=== PATIENT | male | born 1955 | race Caucasian/White ===

== ENCOUNTER 2020-08-27 15:24 | Observation (INO) | payer OTHER, MEDICARE, SELFPAY ==
[2020-08-27] VITALS (16 sets, daily range): BP systolic 116–135; BP diastolic 73–82; PULSE 74–108; RESP 13–24; TEMP 36.3–36.4; O2SAT 96–99; BMI 34.6
--- NOTE | ~2020-08-27 | XR_ITS ---
EXAMINATION: XR chest 2V DATE: 08/27/2020 16:10 INDICATION: Hypotension TECHNIQUE: PA and lateral views of the chest are obtained. COMPARISON: 04/08/2016 FINDINGS: The lungs are free of acute opacities. There is no pleural effusion or pneumothorax. The he art size is normal. Calcified bilateral hilar lymph nodes are consistent with old granulomatous disea se. There is moderate thoracic spondylosis. IMPRESSION: 1. No acute cardiopulmonary abnormality. Reviewed, dictated and finalized at location A.
[2020-08-27 15:49] LABS: Basophils Percent Auto 0.2 % (0.2-1.2); Eosinophils Absolute Auto 0.1 K/mm3 (0-0.3); Eosinophils Percent Auto 1.8 % (0-4.4); Hematocrit 45.2 % (42.0-52.0); Hemoglobin 14.6 g/dL (14.0-18.0); Immature Granulocyte Absolute 0.01 K/mm3 (0.00-0.031); Immature Granulocyte Percent A 0.2 % (0-0.5); Lymphocytes Absolute Auto 1.32 K/mm3 (0.9-3.2); Lymphocytes Percent Auto 22.2 % (18.3-44.2); Mean Corpuscular HGB Conc 32.3 g/dl (32-36); Mean Corpuscular Hemoglobin 29.2 pg (26-34); Mean Corpuscular Volume 90.4 fl (80-100); Mean Platelet Volume 10.9 fl (7.4-10.4); Monocytes Absolute Auto 0.5 K/mm3 (0.1-0.6); Monocytes Percent Auto 8.1 % (2.6-8.5); Neutrophils Percent Auto 67.5 % (45.5-73.1); Platelet Count Result 263 k/mm3 (150-375)
[2020-08-27 15:59] LABS: Prothrombin Time 12.9 Seconds (11.1-14.7)
[2020-08-27 16:00] LABS: Partial Thromboplastin Time 29.9 SECONDS (22.3-36.8)
[2020-08-27 16:14] LABS: Anion Gap 9 mmol/L (8-16); Blood Urea Nitrogen 21 mg/dL (9-20); Calcium 9.6 mg/dL (8.4-10.2); Carbon Dioxide 31 mmol/L (22-30); Chloride 104 mmol/L (98-107); Estimated CRCL calculation 108 ml/min; Estimated Glomerular Filt Rate > 60; Glucose 142 mg/dL (75-110); Sodium 144 mmol/L (137-145)
[2020-08-27 16:19] LABS: Troponin I < 0.012 ng/mL (0.000-0.034)
--- NOTE | 2020-08-27 16:44 | ED.CHESTPAIN ---
HPI - Chest Pain General Chief Complaint: Chest Pain Stated Complaint: chest pain, heart racing Time Seen by Provider: 08/27/20 16:40 Source: RN notes reviewed History of Present Illness HPI narrative: Patient presents to emergency department from home for chest pain. Patient states he was at his house today and had someone working on his house. He states the person was working on his house was taking longer than he felt he should have and was pedaling around. Since that time he developed some tightness in his midsternal chest. States that this episode lasted for approximately 20 minutes and resolved on its own. He states that this is the fourth episode he has had since the beginning of November. He states following this he was scheduled get a flu shot at his doctor's office and had gone to his doctor's office. They asked how he had been feeling he noted the chest pain and states that he had a blood pressure taken was 90s over 60s and a pulse ox was placed on his finger that noted a heart rate of 160s instructed to come to the emergency department for further evaluation patient denies any previous cardiac history. He denies any pain at this time. Related Data Allergies Allergy/AdvReac Type Severity Reaction Status Date / Time No Known Allergies Allergy Unknown Unverified 04/08/16 20:02 Review of Systems Review of Systems: Narrative: Gen.: Denies fevers or chills ENT: Denies congestion Respiratory: Denies shortness of breath or cough CV: See HPI GI: Denies abdominal pain nausea, emesis or diarrhea denies burning, urgency, frequency or hematuria Musculoskeletal: Denies back pain or muscle pain Neuro: Denies numbness, tingling, weakness or focal weakness Skin: Denies rash Except as documented, all other systems reviewed and negative [facility] Past Medical History Medical History (Updated 08/27/20 @ 17:12 by Guicho Boles DO) Parkinsons disease Social History Social History (Updated 08/27/20 @ 16:46 by Guicho Boles DO) Smoking status: Never smoker Exam Narrative: Exam Narrative: APPEARANCE: No acute distress, nontoxic, resting in bed EYES: EOMI HEENT: Normocephalic, atraumatic, OMM RESPIRATORY: No respiratory distress Clear to auscultation bilaterally with no rhonchi wheezing or rales. CARDIOVASCULAR: Regular rate and rhythm without murmurs rubs or gallops. ABDOMINAL: Soft, nontender, nondistended, no rebound or guarding MUSCULOSKELETAl: Moves all extremities. No clubbing, cyanosis or edema. NEURO: Awake and alert. Following commands, speech normal, no focal deficits SKIN:: Warm, dry. No rashes lesions or abrasions PSYCHIATRIC: Normal affect/mood, Course Course Emergency Course: Called discussed with Dr. fischer presentation work-up. This time agrees with consult and recommends admission to the hospital service Discussed with GLADYS Jeffries presentation work-up. Agrees with admission at this time to Dr. Mckeon Discussed with patient and family results of workup and diagnosis. Discussed need for admission. Patient and family understand and agree to current treatment plan Vital Signs Vital signs: Vital Signs Temperature 97.5 F L 08/27/20 15:30 Pulse Rate 106 H 08/27/20 15:30 Respiratory Rate 20 08/27/20 15:30 Blood Pressure 132/73 08/27/20 15:30 Pulse Oximetry 98 08/27/20 15:30 Temperature 97.5 F L 08/27/20 15:30 Pulse Rate 106 H 08/27/20 15:30 Respiratory Rate 20 08/27/20 15:30 Blood Pressure 132/73 08/27/20 15:30 Pulse Oximetry 98 08/27/20 15:30 MDM - Chest Pain Lab Data Result diagrams: 08/27/20 15:41 08/27/20 15:41 Labs: Lab Results 08/27/20 08/27/20 08/27/20 Range/Units 15:41 15:41 15:41 WBC 6.0 (4.5-10.0) K/mm3 RBC 5.00 (4.6-6.20) M/mm3 Hgb 14.6 (14.0-18.0) g/dL Hct 45.2 (42.0-52.0) % MCV 90.4 (80-100) fl MCH 29.2 (26-34) pg MCHC 32.3 (32-36) g/dl RDW 14.0 (11.5-14.5) % Plt C
[2020-08-27 17:00] LABS: D Dimer 0.48 ug/mL (<0.48)
[2020-08-27] MEDS: ASPIRIN 81 MG CHEWABLE TABLET 324 MG PO (17:47)
[2020-08-27] MEDS: SODIUM CHLORIDE 0.9% IV 1,000 ML 999 ML IV CONT (17:47)
[2020-08-27 18:42] LABS: Troponin I < 0.012 ng/mL (0.000-0.034)
--- NOTE | 2020-08-27 19:56 | ADMGEN ---
This patient, Stoney Kingston, was admitted to IMU Room 211-01 @ 1845. Patient/family oriented to hospital policies and general routines including ID bracelet, bed and alarms, visiting hours, pain management, procedures, bathroom and other care routines, personal items, smoking policy, room service/diet, and visiting hours. Information on how to activate the Rapid Response Team has been discussed. Patient/Family are encouraged to report perceived risks to care and to ask questions if they do not understand what they are told or what they should do.
--- NOTE | 2020-08-27 22:00 | PM.IMHP ---
H&P: HPI History of Present Illness Date/Time: 08/27/20 22:00 Chief complaint: Chest pressure. Narrative: Stoney Kingston is a 65-year-old male Parkinson's, hypertension, and diet-controlled diabetes who presented to the emergency department earlier today with complaints of chest pressure. Not long after eating lunch today he developed a slight pressure in the midsternal chest region, just left of center, that resolved within approximately 20 minutes. He was a bit fatigued thereafter but felt okay and he then went to his primary care provider's office for his flu shot. When asked how he had been feeling, he admitted to them that he had experienced chest pressure and he had felt fatigued since it resolved. His vital signs were obtained with a blood pressure of reportedly 90/60 with a heart rate in the 160s. 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 With further questioning he has had similar episodes, perhaps 4 or 5 since the beginning of this year, all which have resolved within minutes. Today's episode did last a bit longer. At the time my evaluation he feels in his usual state of health and has no complaints. He specifically denies history of cardiac dysrhythmia, palpitations, fluttering, and feelings of racing heart. He denies associated shortness of breath, nausea, vomiting, sweats, lightheadedness, syncope, and near syncope. He has not experience exertional chest pain or pleuritic pain. He denies history of sleep apnea in fact had a negative sleep study recently. He does not drink alcohol and drinks caffeine only in moderation. Of note he has seen Dr. Evans with [employer], and he apparently has had a negative stress test in the past. Review of Systems Review of Systems: Narrative: Twelve systems were reviewed with pertinent positives and negatives as per HPI. No fever, chills, or sweats. No recent cold or flu symptoms. He denies sick contacts. No orthopnea or PND. He has occasional lower extremity edema which is unchanged. No history of venous thromboembolism. He was diagnosed with type 2 diabetes mellitus and winter 2018 with a hemoglobin A1c of 6.5. He was put on metformin 500 mg once a day, and after losing nearly 40 lb he was able to come off of that medication reports a recent A1c I believe a 5.9. He does not check his glucose at home. No symptoms of neuropathy. He denies blurry vision, polydipsia, and polyuria. Except as documented, all other systems were reviewed and are negative. FOR[facility]LY [facility], [facility] Past Medical History Medical History (Updated 08/27/20 @ 23:19 by Nesha Harrison PA-C) Degenerative disc disease Diet-controlled diabetes mellitus Hypertension Lower extremity cellulitis Hospitalized for such in March 2012 and April 2016. Osteoarthritis Parkinsons disease Surgical History Surgical History (Updated 08/27/20 @ 23:17 by Nesha Harrison PA-C) History of left inguinal hernia repair History of tonsillectomy Family History Family History Mother Brain aneurysm Cancer Father Acute myocardial infarction Social History Social History (Updated 08/27/20 @ 23:18 by Nesha Harrison PA-C) Social History: Surrogate decision maker: Myriam Kingston, spouse. Code status: Full code. Smoking status: Never smoker Alcohol intake: former Drinks per week: 0 Alcohol use details: Was a heavy drinker but quit many years ago. Substance use: never Additional living arrangements comments: Resides with his in [place]. He has a biological daughter and a stepson. 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 Gender identity (if verbalized by the patient): Male Spiritual care concerns: No Meds Home Medications and Allergies Ho
[2020-08-27 22:03] LABS: Troponin I < 0.012 ng/mL (0.000-0.034)
[2020-08-28] VITALS: PULSE 71; PULSE 74; RESP 16; O2SAT 98
[2020-08-28 01:42] VITALS: PULSE 74
[2020-08-28 03:36] VITALS: BP 124/69; PULSE 72; RESP 18; TEMP 36.6; O2SAT 99
[2020-08-28 04:00] VITALS: PULSE 72; PULSE 74; RESP 18; O2SAT 99
[2020-08-28 05:19] LABS: Basophils Percent Auto 0.3 % (0.2-1.2); Eosinophils Absolute Auto 0.2 K/mm3 (0-0.3); Hematocrit 40.1 % (42.0-52.0); Hemoglobin 12.8 g/dL (14.0-18.0); Immature Granulocyte Absolute 0.01 K/mm3 (0.00-0.031); Immature Granulocyte Percent A 0.2 % (0-0.5); Lymphocytes Absolute Auto 1.69 K/mm3 (0.9-3.2); Lymphocytes Percent Auto 26.4 % (18.3-44.2); Mean Corpuscular HGB Conc 31.9 g/dl (32-36); Mean Corpuscular Hemoglobin 28.9 pg (26-34); Mean Corpuscular Volume 90.5 fl (80-100); Monocytes Absolute Auto 0.6 K/mm3 (0.1-0.6); Monocytes Percent Auto 9.7 % (2.6-8.5); Neutrophils Absolute Auto 3.9 K/mm3 (1.3-6.7); Neutrophils Percent Auto 60.4 % (45.5-73.1); Platelet Count Result 224 k/mm3 (150-375); Red Blood Count 4.43 M/mm3 (4.6-6.20); Red Cell Distribution Width 14.1 % (11.5-14.5); White Blood Count 6.4 K/mm3 (4.5-10.0)
[2020-08-28 05:37] LABS: Anion Gap 6 mmol/L (8-16); Blood Urea Nitrogen 17 mg/dL (9-20); Calcium 8.9 mg/dL (8.4-10.2); Carbon Dioxide 29 mmol/L (22-30); Chloride 108 mmol/L (98-107); Estimated CRCL calculation 139 ml/min; Estimated Glomerular Filt Rate > 60; Glucose 105 mg/dL (75-110); Potassium 3.7 mmol/L (3.4-5.0); Sodium 143 mmol/L (137-145)
[2020-08-28 06:00] VITALS: PULSE 73
[2020-08-28] MEDS: CARBIDOPA/LEVODOPA 25/100 MG TABLET 2 TABLET BY MOUTH (06:24)
--- NOTE | 2020-08-28 07:51 | PM.IMPN ---
Progress Note: A&P Assessment and Plan (1) Tachycardia: Code(s): R00.0 - Tachycardia, unspecified Status: Acute Assessment and Plan: Currently is better controlled A.FIB with RVR Continue to monitor Off of Diltiazem drip currently. (2) Chest pressure: Code(s): R07.89 - Other chest pain Status: Acute Assessment and Plan: No pain currently Likely secondary to demand ischemia Supportive care (3) Diet-controlled diabetes mellitus: Code(s): E11.9 - Type 2 diabetes mellitus without complications Status: Acute Assessment and Plan: Continue to monitor. Accuchecks ACHS ISS as needed (4) Hypertension: Code(s): I10 - Essential (primary) hypertension Status: Acute Assessment and Plan: Well controlled. Continue to monitor. (5) Chest pain: Code(s): R07.9 - Chest pain, unspecified Status: Acute Assessment and Plan: Chest pain free currently. Supportive care (6) Parkinsons disease: Code(s): G20 - Parkinson's disease Status: Acute Assessment and Plan: Continue home meds Subjective Date/time seen: 08/28/20 07:51 I feel ok Review of Systems Review of Systems: Narrative: Patient states that he is doing OK. Had tachycardia overnight. All systems reviewed & are unremarkable except as noted in HPI and below (HPI) Exam Narrative: Exam Narrative: Sitting in bed. Const: General: cooperative, no acute distress and ill appearing Nutritional Appearance: average body habitus Orientation/consciousness: patient oriented x3 HENMT: Head: normal to inspection and normocephalic Ears: hearing grossly normal bilaterally General nose exam: Normal external nose present Face and sinus: normal facial exam and face symmetric Mouth: Yes Normal oral and palatal mucosa present Teeth and gingiva: other (According to age.) Other: According age. Eyes: General: appearance normal, both eyes and all related structures Conjunctivae: conjunctivae normal Sclera: sclerae normal Cornea: corneas normal Pupils: Equal, round and reactive pupils present EOM: EOMs intact bilaterally Neck: Neck: normal visual inspection, no lymphadenopathy and no JVD Lymphatic: no lymphadenopathy noted Resp: Effort & Inspection: normal respiratory effort Auscultation: clear to auscultation bilaterally and diminished lung sounds Cardio: Jugular venous distension: no JVD Rate: regular rate Rhythm: regular rhythm GI: Inspection: distended GI Palp: Yes Soft to palpation and Yes No hepatosplenomegaly present Percussion: Yes tympanic to percussion Auscultation: normal bowel sounds Skin: General skin exam: normal color Lesions: no lesions Rashes: no rashes Wounds: no wounds Neuro: General: patient oriented x3 and CN's II-XI intact bilaterally Cranial nerves: Yes CN's II-XII intact bilaterally and Yes Equal, round and reactive pupils present Speech: normal speech Motor exam (neuro): 5/5 motor strength present throughout Sensory Exam: normal sensation Extrem: General: normal to inspection, full ROM and no pedal edema Objective Data Vital Signs Vital Signs: Vital Signs - 24 hr 08/27/20 15:30 08/27/20 16:37 08/27/20 16:39 Temperature 97.5 F L Pulse Rate 106 H 108 H 103 H Respiratory Rate 20 18 24 H Blood Pressure 132/73 122/82 Pulse Oximetry 98 97 96 08/27/20 16:45 08/27/20 17:01 08/27/20 17:16 Temperature Pulse Rate 105 H 99 99 Respiratory Rate 16 23 H 13 Blood Pressure 120/73 Pulse Oximetry 96 97 08/27/20 17:34 08/27/20 17:39 08/27/20 17:50 Temperature Pulse Rate 97 98 94 Respiratory Rate 22 H 19 23 H Blood Pressure 116/79 Pulse Oximetry 98 99 98 08/27/20 18:00 08/27/20 18:01 08/27/20 18:15 Temperature Pulse Rate 90 92 92 Respiratory Rate 23 H 22 H 17 Blood Pressure 132/78 Pulse Oximetry 97 97 98 08/27/20 18:47 08/27/20 20:00 08/27/20 22:00 Temperature Pulse Rate 99 82 81 Respiratory
[2020-08-28 08:00] VITALS: BP 140/81; PULSE 88; RESP 20; TEMP 36.1; O2SAT 98
--- NOTE | 2020-08-28 08:28 | PM.CNCAR ---
Assessment and Plan Assessment and plan (1) Tachycardia: Code(s): R00.0 - Tachycardia, unspecified Status: Acute Assessment and Plan: Noted on pulse oximeter at PCP office but not proven on EKG. EKG here shows sinus tachycardia at HR 106. He has been under physical and emotional stress lately and also admits to poor oral intake and skipping meals with busy work schedule. encourage oral intake Hold lisinopril for now given low BP on admission Consider Holter monitor in outpatient settings. Patient is stable for discharge from cardiac standpoint Patient is followed by Dr Evans. He has follow up appointment coming up soon. (2) Chest pressure: Code(s): R07.89 - Other chest pain Status: Acute Assessment and Plan: Atypical for angina. He ruled out for CO by EKG and negative trop. He had reactively recent stress test with his primary atmospheric sciences professor. No need for any further cardiac work up (3) Hypertension: Code(s): I10 - Essential (primary) hypertension Status: Acute Assessment and Plan: Per pt he has no history of HTN and on low dose lisinopril for DM. Will hold lisinopril on discharge. 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 With that he was feeling fatigued and tired. Yesterday after lunch he developed mild chest pressure that resolved spontaneously with no radiation and no associated dyspnea, palpitations, nausea or diaphoresis. Later on he went to his PCP office for flu shot. He was pain free at that time however he was noted to have BP of 90/60 and HR of 160 on pulse oximetry. Unfortunately no EKG was done at the PCP office. He was instructed to go to ER. In ER vitals were normal. EKG shows sinus tachycardia at 106 with incomplete RBBB He is followed by cardiologies (Dr Evans) mainly for preventive purposes with no known coronary disease, heart failure or arrhythmias. He had Echocardiogram and Nuc stress test with his atmospheric sciences professor both reportedly within normal limits. Never smoker. He had alcohol issues in the past but no active alcohol use now for years. Reason For Visit: Chest pressure. Review of Systems Review of Systems: All systems reviewed & are unremarkable except as noted in HPI and below Constitutional: Constitutional: Denies fatigue and Denies headache(s) Eyes: Eyes: Denies blurry vision ENT: Reports Normal hearing present and Denies headache(s) Cardiovascular: Cardiovascular: Denies chest pain, Denies diaphoresis, Denies pedal edema, Denies leg edema, Denies lightheadedness, Denies palpitations and Denies dyspnea Respiratory: Respiratory: Denies cough and Denies dyspnea Gastrointestinal: Gastrointestinal: Denies abdominal pain Musculoskeletal: Musculoskeletal: Denies back pain Neurologic: Reports Normal hearing present and Denies headache(s) Psychiatric: Psychiatric: Denies anxiety Endocrine: Endocrine: Denies fatigue and Denies palpitations [facility] Past Medical History Medical History (Updated 08/27/20 @ 23:19 by Nesha Harrison PA-C) Degenerative disc disease Diet-controlled diabetes mellitus Hypertension Lower extremity cellulitis Hospitalized for such in March 2012 and April 2016. Osteoarthritis Parkinsons disease Surgical History Surgical History (Updated 08/27/20 @ 23:17 by Nesha aHrrison PA-C) History of left inguinal hernia repair History of tonsillectomy Family History Family History Mother Brain aneur
[2020-08-28] MEDS: MULTIVITAMINS THERAPEUTIC TAB (*BKC) 1 TABLET PO (09:15)
[2020-08-28] MEDS: lisinopriL 5 MG TABLET PO (09:15)
[2020-08-28] MEDS: DICLOFENAC SOD 75 MG TABLET.EC PO (09:15)
--- NOTE | 2020-08-28 15:26 | ECG_ITS ---
Measurements Intervals [place] Rate: 106 P: 5 RI: 175 QRS: -34 QRSD: 101 T: 31 QT: 343 QTc: 456 Interpretive Statements SINUS TACHYCARDIA LEFT AXIS DEVIATION INCOMPLETE RIGHT BUNDLE BRANCH BLOCK ABNORMAL ECG Electronically Signed On 08-28-2020 7:28:07 CDT by Geronimo De La Rosa D.O.
--- NOTE | 2020-09-24 20:01 | PM.DS ---
DS: Admitting Diagnosis Admitting Diagnosis Admitting Diagnosis: 1-Chest pain 2-HTN 3-T2DM 4-Tachycardia DS: Discharge Diagnosis Discharge Diagnosis (1) Tachycardia: Code(s): R00.0 - Tachycardia, unspecified Status: Acute Assessment and Plan: Patient presented to his PCP office with complains of chest pressure. HR was increased at the time Patient was asked to come to ED Patient was ruled out for ACS with negative serial cardiac enzymes. (2) Chest pressure: Code(s): R07.89 - Other chest pain Status: Acute Assessment and Plan: Patient has a Cardilogist with whom he follows up in the outpatient office Cardiology was consulted but in view of this it was decided that patient sees his usual Funeral [employer] Dr. 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 (3) Diet-controlled diabetes mellitus: Code(s): E11.9 - Type 2 diabetes mellitus without complications Status: Acute Assessment and Plan: Diet controlled Quarterly A1C in the outpatient setting Follow up with PCP Carb consistent diet. (4) Hypertension: Code(s): I10 - Essential (primary) hypertension Status: Acute Assessment and Plan: Well controlled Continue home meds (5) Parkinsons disease: Code(s): G20 - Parkinson's disease Status: Acute Assessment and Plan: Well controlled Continue home meds DS: Summary Time Spent with Patient Time attestation: Total time spent providing and/or coordinating discharge services: Exam Narrative: Exam Narrative: Sitting on chair. Well appearing. Const: General: cooperative, comfortable, alert and awake Nutritional Appearance: overweight Orientation/consciousness: patient oriented x3 Limitations: no limitations HENMT: Head: normal to inspection and normocephalic Ears: hearing grossly normal bilaterally General nose exam: Normal external nose present Eyes: General: appearance normal, both eyes and all related structures Pupils: Equal, round and reactive pupils present EOM: EOMs intact bilaterally Neck: Neck: full ROM, no lymphadenopathy and no JVD Resp: Effort & Inspection: normal respiratory effort Auscultation: clear to auscultation bilaterally Cardio: Jugular venous distension: no JVD Rate: regular rate Rhythm: regular rhythm GI: Inspection: normal to inspection and obesity GI Palp: Yes Soft to palpation and Yes No hepatosplenomegaly present Skin: General skin exam: normal color and no rashes or lesions noted Neuro: General: patient oriented x3 and CN's II-XI intact bilaterally Cranial nerves: Yes CN's II-XII intact bilaterally and Yes Equal, round and reactive pupils present Cognition (Neuro): normal cognition Speech: normal speech Gait exam (Neuro): Normal gait present Motor exam (neuro): 5/5 motor strength present throughout Sensory Exam: normal sensation Extrem: General: normal to inspection, full ROM and pedal edema Discharge Plan Discharge Attending physician on discharge: Rod Pascual V. Consulting providers: Vinicio Lynn ; Cassy Cox ; Geronimo De La Rosa ; Nesha Harrison ; Raghav Zavala Discharging Clinician: Rod Pascual V. Patient Disposition: Home, Self-Care Activity: as tolerated Diet: heart healthy, low sodium, low cholesterol, low fat and high fiber Patient Instructions: Antibiotic Form, Chest Pain (DC), Type 2 Diabetes Management for Adults (DC) Stand Alone Forms: General Discharge Information Follow-up/Referrals: Deacon,DO Tyrone [Primary Care Provider] - 1 Week Discharge Medications: Continued diclofenac sodium 75 mg tablet,delayed release (DR/EC) 75 mg PO DAILY RF: 0 lisinopril 5 mg tablet 5 mg PO DAILY RF: 0 carbidopa-levodopa 25-100 mg tablet See Rx Instructions .ROUTE .COMPLEX RF: 0 multivitamin Tablet 1 tablet PO DAILY RF:
== END 2020-08-28 10:30 | disposition home or self-care (01) ==
LOC: ANHED 17:14 → ANHIMU 23:20
PROVIDERS: Emergency Medicine; Physician Assistant; Admitting Provider Family Medicine; Emergency Provider Emergency Medicine; PCP Student in an Organized Health Care Education/Training Program; Visit Provider Internal Medicine
DX: R07.89 Other chest pain (principal); G20 Parkinson's disease; E11.9 Type 2 diabetes mellitus without complications; I10 Essential (primary) hypertension; R00.0 Tachycardia, unspecified; R94.31 Abnormal electrocardiogram [ECG] [EKG]
CPT/HCPCS: 36415; 71046; 80048; 83735; 84443; 84484; 85025; 85380; 85610; 85730; 93005; 96360; 99285; A9270; G0378; J7030

== ENCOUNTER 2020-10-23 06:46 | Outpatient (NON) | payer OTHER, MEDICARE, SELFPAY ==
[2020-10-24 00:44] LABS: SARS-CoV-2 RNA PCR Negative
== END 2020-10-23 06:47 ==
PROVIDERS: PCP Student in an Organized Health Care Education/Training Program; Visit Provider Student in an Organized Health Care Education/Training Program
DX: R68.89 Other general symptoms and signs (principal); Z20.828 Contact with and (suspected) exposure to other viral communicable diseases
CPT/HCPCS: 87635; C9803; U0003

== ENCOUNTER 2020-10-23 15:01 | Observation (INO) | payer OTHER, MEDICARE, SELFPAY ==
[2020-10-23] VITALS (23 sets, daily range): BP systolic 108–148; BP diastolic 51–87; PULSE 69–155; RESP 14–23; TEMP 36.4–37.1; O2SAT 97–100; BMI 34.8
--- NOTE | ~2020-10-23 | XR_ITS ---
EXAMINATION: XR chest 1V portable INDICATION: Chest pain, tachycardia TECHNIQUE: Portable AP chest at 1535 hours COMPARISON: 08/27/2020 FINDINGS: The lungs are free of acute opacities. There is no pleural effusion or pneumothorax. The he art size is normal. Calcified bilateral hilar lymph nodes are consistent with old granulomatous disea se. There is moderate osteoarthritis of the shoulders. IMPRESSION: 1. No acute cardiopulmonary abnormality. Reviewed, dictated and finalized at location [facility]
--- NOTE | 2020-10-23 15:22 | ECG_ITS ---
Measurements Intervals [place] Rate: 155 P: NM: 0 QRS: -23 QRSD: 102 T: 21 QT: 279 QTc: 448 Interpretive Statements SUPRAVENTRICULAR TACHYCARDIA INCOMPLETE RIGHT BUNDLE BRANCH BLOCK ABNORMAL ECG Electronically Signed On 10-23-2020 16:43:14 TAX ADJUSTER by Geronimo De La Rosa D.O.
[2020-10-23] MEDS: SODIUM CHLORIDE 0.9% IV 1,000 ML 999 ML IV CONT (15:31)
[2020-10-23] MEDS: ADENOSINE IV SOLN 6 MG/2 ML VIAL IV PUSH (15:31)
--- NOTE | 2020-10-23 15:32 | ECG_ITS ---
Measurements Intervals [place] Rate: 92 P: 2 CA: 189 QRS: -15 QRSD: 108 T: 16 QT: 348 QTc: 430 Interpretive Statements SINUS RHYTHM BASELINE ARTIFACT- I, II, AVR, AVF NORMAL ECG Electronically Signed On 10-23-2020 16:45:49 SCIENTIFIC LINGUIST by Geronimo De La Rosa D.O.
[2020-10-23 15:58] LABS: Basophils Percent Auto 0.3 % (0.2-1.2); Eosinophils Absolute Auto 0.2 K/mm3 (0-0.3); Eosinophils Percent Auto 2.4 % (0-4.4); Hematocrit 25.2 % (42.0-52.0); Hemoglobin 7.6 g/dL (14.0-18.0); Immature Granulocyte Absolute 0.01 K/mm3 (0.00-0.031); Immature Granulocyte Percent A 0.2 % (0-0.5); Lymphocytes Absolute Auto 1.42 K/mm3 (0.9-3.2); Lymphocytes Percent Auto 21.3 % (18.3-44.2); Mean Corpuscular HGB Conc 30.2 g/dl (32-36); Mean Corpuscular Hemoglobin 27.8 pg (26-34); Mean Corpuscular Volume 92.3 fl (80-100); Mean Platelet Volume 10.2 fl (7.4-10.4); Monocytes Absolute Auto 0.5 K/mm3 (0.1-0.6); Monocytes Percent Auto 7.8 % (2.6-8.5); Neutrophils Absolute Auto 4.5 K/mm3 (1.3-6.7); Platelet Count Result 358 k/mm3 (150-375); Red Blood Count 2.73 M/mm3 (4.6-6.20); Red Cell Distribution Width 14.2 % (11.5-14.5); White Blood Count 6.7 K/mm3 (4.5-10.0)
--- NOTE | 2020-10-23 16:05 | PC.NURSE ---
Pt denies palpitations or chest pain at present. Continue to monitor. Order received to keep fluids at [facility].
[2020-10-23 16:09] LABS: INR 1.1; Prothrombin Time 14.3 Seconds (11.1-14.7)
[2020-10-23 16:10] LABS: Anion Gap 4 mmol/L (8-16); Blood Urea Nitrogen 17 mg/dL (9-20); Calcium 8.7 mg/dL (8.4-10.2); Carbon Dioxide 29 mmol/L (22-30); Chloride 107 mmol/L (98-107); Estimated CRCL calculation 109 ml/min; Estimated Glomerular Filt Rate > 60; Glucose 131 mg/dL (75-110); Partial Thromboplastin Time 28.2 SECONDS (22.3-36.8); Potassium 3.9 mmol/L (3.4-5.0); Sodium 140 mmol/L (137-145)
[2020-10-23 16:21] LABS: Troponin I < 0.012 ng/mL (0.000-0.034)
--- NOTE | 2020-10-23 16:44 | PC.NURSE ---
Pt resting comfortably on stretcher. Denies needs at present. Remains SR via monitor.
[2020-10-23] MEDS: CARBIDOPA/LEVODOPA 25/100 MG TABLET 2 TABLET PO (17:00)
--- NOTE | 2020-10-23 17:11 | ED.ARRPALP ---
HPI - Arrhythmia/Palpitations General Chief Complaint: Arrhythmia/Palpitations Stated Complaint: palpitations Time Seen by Provider: 10/23/20 15:09 History of Present Illness HPI narrative: Patient is a 65-year-old male who presents ER with racing the heart. He was sitting at a restaurant when it began. Has some mild pressure in center of his chest. No radiation. [place] a little unsteady when standing up. Had similar symptoms a couple months ago that were sustained but did not get a formal diagnosis. He is recently had an echocardiogram that was unremarkable. He has no history of coronary disease or arrhythmia that she is aware of. No aggravating or alleviating factors that he is noted. Related Data Home Medications Medication Instructions Recorded Confirmed carbidopa-levodopa See Rx Instructions .ROUTE .COMPLEX 08/27/20 08/27/20 diclofenac sodium 75 mg PO DAILY 08/27/20 08/27/20 lisinopril 5 mg PO DAILY 08/27/20 08/27/20 multivitamin 1 tablet PO DAILY 08/27/20 08/27/20 Allergies Allergy/AdvReac Type Severity Reaction Status Date / Time No Known Allergies Allergy Unknown Verified 10/23/20 15:06 Review of Systems Review of Systems: All systems reviewed & are unremarkable except as noted in HPI and below Constitutional: Constitutional: Denies chills, Denies fever(s) and Denies weakness ENT: Denies nasal congestion and Denies sore throat Cardiovascular: Cardiovascular: Reports chest pain, Reports rapid heart rate and Denies radiating jaw, neck or arm pain Respiratory: Respiratory: Denies cough, Denies dyspnea and Denies wheezing Gastrointestinal: Gastrointestinal: Denies abdominal pain and Denies nausea PMFSH Past Medical History Medical History (Updated 10/23/20 @ 20:11 by Kimani Acuna MD) Degenerative disc disease Diet-controlled diabetes mellitus Hypertension Lower extremity cellulitis Hospitalized for such in March 2012 and April 2016. Osteoarthritis Parkinsons disease Surgical History Surgical History (Updated 08/27/20 @ 23:17 by Nesha Harrison PA-C) History of left inguinal hernia repair History of tonsillectomy Family History Family History Mother Brain aneurysm Cancer Father Acute myocardial infarction Social History Social History (Updated 08/27/20 @ 23:18 by Nesha Harrison PA-C) Social History: Surrogate decision maker: Myriam Kingston, spouse. Code status: Full code. Smoking status: Never smoker Alcohol intake: former Drinks per week: 0 Substance use: never Additional living arrangements comments: Resides with his in [place]. He has a biological daughter and a stepson. 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 Gender identity (if verbalized by the patient): Male Spiritual care concerns: No Exam Narrative: Exam Narrative: GENERAL: Well-appearing, well-nourished, and in no acute distress. HEAD: Normocephalic, atraumatic. ENT: Mucous membranes moist. CHEST: Clear to auscultation. No respiratory distress. HEART: Tachycardic and regular. Normal peripheral pulses. ABDOMEN: Soft, nontender, nondistended. Heme + stool on NANI, no gross blood. EXTREMITIES: Normal range of motion. 1+ edema. SKIN: Warm, dry, no rash. NEURO: Alert and oriented x3. PSYCH: Normal mood and affect. Course Course Emergency Course: Patient responded well to adenosine 6 mg. Went into a normal sinus rhythm. Patient found to be anemic with occult positive stool. Likely related to his NSAID intake. Admit to hospitalist service with cardiology and GI consulting. Patient received 2 units of blood and some Protonix. We will put him on a clear liquid diet should they decide to scope him. Patient will be started on oral metoprolol for rate control per cardiology recommendations. Lastly patient has let us know that he was Covid swab today due to fatigue which is likely related to his ane
[2020-10-23] MEDS: PANTOPRAZOLE SODIUM IV 40 MG VIAL IV PUSH (17:52)
--- NOTE | 2020-10-23 17:54 | PC.NURSE ---
stool guiac positive per Dr. Acuna
[2020-10-23] MEDS: METOPROLOL TARTRATE 25 MG TABLET PO ×2 (18:41→20:00)
--- NOTE | 2020-10-23 19:33 | PC.NURSE ---
Report to WINIFRED Thompson, to continue care. Preparing to admit patient.
[2020-10-23 19:40] LABS: Hematocrit 24.4 % (42.0-52.0); Hemoglobin 7.4 g/dL (14.0-18.0)
--- NOTE | 2020-10-23 20:22 | PM.IMHP ---
H&P: HPI History of Present Illness Date/Time: 10/23/20 20:22 Chief complaint: svt, gi bleeding, covid pui Narrative: Stoney Kingston is a 65 year old male with past medical history of Parkinson's, hypertension, hyperlipidemia, osteoarthritis who presents to the ED with complaints of fatigue. He has been feeling like he has been getting weaker and weaker over the last month. He endorses taking diclofenac used to take 3 pills a day now cut down to 1 pill daily. Denies any history of gastric ulcers or bleeding. 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 States he has never had a colonoscopy before. His mother had colon cancer at age 74 or 78. He denies hemorrhoids. He has never had issues with anemia before. For his heart he has felt he has had fast heart rates in the past which has slowed down on their own. Does not take any stimulants, cut down on caffeine. He has had an echocardiogram done 3 weeks ago. Sees a fire control officer. In the ED: EKG showed SVT rate 155, subsequent EKG after adenosine 6mg x1 showed normal sinus rhythm rate 92. Occult blood was positive. Hemoglobin 7.4. Patient was given 2 units of packed red blood cells and Protonix, clear liquid diet for GI consultation. Cardiology was consulted for the SVT and patient was started on metoprolol. COVID pending. Patient admitted SVT, GI bleed. Date of service 10/23/2020 Review of Systems Review of Systems: Narrative: Constitutional: No Fever, No Chills, No Night Sweats. Endorses generalized weakness. ENT/Mouth: No Hearing Changes, No Ear Pain, No Nasal Congestion, No Sinus Pain, No Hoarseness, No sore throat, No Rhinorrhea, No Swallowing Difficulty Eyes: No Eye Pain, No Redness, No Vision Changes Cardiovascular: No Chest Pain, No Dyspnea on Exertion, No Orthopnea, No Claudication, No Edema. Endorses palpitations which come on and off spontaneously. Respiratory: No Cough, No Sputum, No Wheezing, No Shortness of Breath Gastrointestinal: No Nausea, No Vomiting, No Diarrhea, No Constipation, No Abdominal Pain does have itching in epigastric region, No Heartburn, No Hematochezia, No Melena Genitourinary: No Dysuria, No Urinary Frequency, No Hematuria, No Urinary Incontinence, No Urgency Musculoskeletal: No Arthralgias, No Myalgias, No Joint Swelling, No Joint Stiffness, No Back Pain Skin: No Skin Lesions, No Pruritis, No Hair Changes Neuro: No Weakness, No Numbness, No Paresthesias, No Loss of Consciousness, No Syncope, No Dizziness, No Headache Psych: No Anxiety/Panic, No Depression, No Insomnia Heme: No Bruising, No Bleeding Lymph: No Adenopathy Endocrine: No Polyuria, No Polydipsia, No Temperature Intolerance [facility] Past Medical History Medical History Degenerative disc disease Diet-controlled diabetes mellitus Hypertension Lower extremity cellulitis Hospitalized for such in March 2012 and April 2016. Osteoarthritis Parkinsons disease Surgical History Surgical History History of left inguinal hernia repair History of tonsillectomy Family History Family History Mother Brain aneurysm Cancer Breast cancer Colon cancer Father Acute myocardial infarction Social History Social History Social History: Surrogate decision maker: Myriam Kingston, spouse. Code status: Full code. Smoking status: Never smoker Alcohol intake: former Drinks per week: 0 Substance use: never Additional living arrangements comments: Resides with his in [place]. He has a biological daughter and a stepson. 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 Gender identity (if verbalized by the patient): Male Spiritual care concerns: No Meds Home Medications and Al
--- NOTE | 2020-10-23 20:50 | PC.NURSE ---
This patient, Stoney Kingston, was admitted to [facility] Surg Room 328-01. Patient/family oriented to hospital policies and general routines including ID bracelet, bed and alarms, visiting hours, pain management, procedures, bathroom and other care routines, personal items, smoking policy, room service/diet, and visiting hours. Information on how to activate the Rapid Response Team has been discussed. Patient/Family are encouraged to report perceived risks to care and to ask questions if they do not understand what they are told or what they should do.
--- NOTE | 2020-10-23 20:50 | PC.NURSE ---
This patient, Stoney Kingston, was admitted to [facility] Surg Room 328-01. Patient/family oriented to hospital policies and general routines including ID bracelet, bed and alarms, visiting hours, pain management, procedures, bathroom and other care routines, personal items, smoking policy, room service/diet, and visiting hours. Information on how to activate the Rapid Response Team has been discussed. Patient/Family are encouraged to report perceived risks to care and to ask questions if they do not understand what they are told or what they should do.
[2020-10-24] VITALS (18 sets, daily range): BP systolic 106–134; BP diastolic 55–86; PULSE 65–76; RESP 16–20; TEMP 36.2–37.1; O2SAT 97–100
[2020-10-24] MEDS: SODIUM CHLORIDE 0.9% IV 250 ML 30 ML IV CONT (03:04)
--- NOTE | 2020-10-24 03:36 | PC.NURSE ---
Patient covid [place] thru 10/23/20. Patient gives RN giving his care verbal OK to check results. Result pending still at this time. Patient notified.
[2020-10-24 05:51] LABS: Hemoglobin A1C 4.7 % (<5.7)
[2020-10-24] MEDS: CARBIDOPA/LEVODOPA 25/100 MG TABLET 2 TABLET PO ×3 (06:00→17:28)
[2020-10-24 07:17] LABS: Hematocrit 26.4 % (42.0-52.0); Hemoglobin 8.2 g/dL (14.0-18.0)
[2020-10-24] MEDS: MULTIVITAMINS THERAPEUTIC TAB (*BKC) 1 TABLET PO (09:01)
[2020-10-24] MEDS: PANTOPRAZOLE SODIUM IV 40 MG VIAL IV PUSH ×2 (09:01→21:21)
[2020-10-24] MEDS: METOPROLOL TARTRATE 25 MG TABLET PO ×2 (09:41→21:17)
[2020-10-24 09:46] LABS: Anion Gap 5 mmol/L (8-16); Blood Urea Nitrogen 16 mg/dL (9-20); Calcium 8.7 mg/dL (8.4-10.2); Carbon Dioxide 27 mmol/L (22-30); Chloride 108 mmol/L (98-107); Estimated CRCL calculation 121 ml/min; Estimated Glomerular Filt Rate > 60; Glucose 91 mg/dL (75-110); Magnesium 2.1 mg/dL (1.6-2.3); Potassium 4.1 mmol/L (3.4-5.0); Sodium 140 mmol/L (137-145)
--- NOTE | 2020-10-24 10:07 | PM.CNCAR ---
Assessment and Plan Assessment and plan (1) SVT (supraventricular tachycardia): Code(s): I47.1 - Supraventricular tachycardia Status: Acute Assessment and Plan: Converted sinus rhythm, will start on metoprolol 25 b.i.d. and continue with that upon discharge, he is to follow up with his crew person for further evaluation, possibly ablation if he has significant recurrence (2) Occult GI bleeding: Code(s): R19.5 - Other fecal abnormalities Status: Acute (3) Person under investigation for COVID-19: Code(s): Z20.828 - Contact with and (suspected) exposure to other viral communicable diseases Status: Acute (4) Chest pressure: Code(s): R07.89 - Other chest pain Status: Acute Assessment and Plan: So far cardiac enzymes negative, EKG is unremarkable, he had a stress test with his primary crew person which was negative recently, he needs to have a close follow-up, to consider further investigation if he has recurrence possibly with cardiac catheterization, however now he is pain free and he is okay to be discharged home to follow-up with his primary crew person Dr. Evans (5) Hypertension: Code(s): I10 - Essential (primary) hypertension Status: Acute Additional Plan He seems to be stable from cardiac standpoint to be discharged to have a follow-up with Dr. Evans in 1 week. I told feel free to call my office for any other inquiry History of Present Illness History of Present Illness Consult date/time: 10/24/20 10:07 65-year-old gentleman with history of hypertension, was admitted to the hospital because of tachycardia and chest heaviness, noted to have SVT initially converted to sinus rhythm with 1 dose of adenosine, he was here back in August at that time he was in with atypical chest pain, prior to that he had a stress test at his primary crew person's office which was negative. His heaviness in the chest is minimal 2/10 nonexertional improved after he was given blood transfusion to his severe anemia. So far cardiac enzymes are negative and EKG is unremarkable, no more SVT. We start him on metoprolol, last time when he was here was supposed to follow-up with his primary crew person after admission but I am not sure if he did. He was noted to have profound anemia and he received blood transfusion now. Reason For Visit: svt, gi bleeding, covid pui Review of Systems Constitutional: Constitutional: Reports fatigue, Reports lethargy and Reports poor appetite Cardiovascular: Cardiovascular: Reports as per HPI [facility] Past Medical History Medical History Degenerative disc disease Diet-controlled diabetes mellitus Hypertension Lower extremity cellulitis Hospitalized for such in March 2012 and April 2016. Osteoarthritis Parkinsons disease Surgical History Surgical History History of left inguinal hernia repair History of tonsillectomy Family History Family History Mother Brain aneurysm Cancer Breast cancer Colon cancer Father Acute myocardial infarction Social History Social History Social History: Surrogate decision maker: Myriam Kingston, spouse. Code status: Full code. Smoking status: Never smoker Alcohol intake: former Drinks per week: 0 Substance use: never Additional living arrangements comments: Resides with his in [place]. He has a biological daughter and a stepson. 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 Gender identity (if verbalized by the patient): Male Spiritual care concerns: No Meds Home Medications and Allergies Home Medications Medication Instructions Recorded Confirmed Type carbidopa-levodopa See Rx Instructions .ROUTE .COMPLEX 08/27/20
[2020-10-24] MEDS: FUROSEMIDE INJ 40 MG/4 ML VIAL 20 MG IV PUSH (11:33)
[2020-10-24 11:59] LABS: Hematocrit 27.7 % (42.0-52.0); Hemoglobin 8.6 g/dL (14.0-18.0)
[2020-10-24 12:14] LABS: Cholesterol 192 mg/dL (0-200); HDL Direct 29 mg/dL; Triglycerides 94 mg/dL (<150)
[2020-10-24 12:25] LABS: LDL Cholesterol Direct 139 mg/dL
--- NOTE | 2020-10-24 13:55 | WPDGICN ---
Assessment and Plan Assessment and plan (1) Acute blood loss anemia: Code(s): D62 - Acute posthemorrhagic anemia Status: Acute Assessment and Plan: he came in with SVT in setting of drop of his hb, also noted dark stools using nsaid's he needs EGD but also colonoscopy (family history of colon cancer and he never had one), agreeable to get both scopes tomorrow. Will start bowel prep (2) Occult GI bleeding: Code(s): R19.5 - Other fecal abnormalities Status: Acute Assessment and Plan: on ppi now more recommendations after scopes tomorrow (3) SVT (supraventricular tachycardia): Code(s): I47.1 - Supraventricular tachycardia Status: Acute Assessment and Plan: treated with adenosine and evaluated by cardiology (4) Chest pressure: Code(s): R07.89 - Other chest pain Status: Acute (5) Diet-controlled diabetes mellitus: Code(s): E11.9 - Type 2 diabetes mellitus without complications Status: Acute GI Consult Note Consult date/time: 10/24/20 13:55 Reason for consult: dark stools, acute blood loss anemia, gib HPI: Stoney Kingston is a 65 year old male with history of Parkinson's, hypertension, hyperlipidemia, osteoarthritis using diclofenac daily for about 20 years. He came to EF after having palpitations and more fatigue than usual for last few weeks, also noted last 2 weeks more dark stools than usual but attributed to diet and probably stress. Several weeks ago also had episode of SVT for which he stayed in the hospital for observation, had negative stress test. He is not taking any ppi and never had any scopes. His mother had colon cancer at age 74 or 78. Hb yesterday was 7.6 (2 months ago 12.5), normal MCV, BUN and renal function normal. He had blood transfusion last night and now he is feeling much better. Also had + occult blood in stool. COVID-19 negative. Had SVT yesterday but treated in ER with adenosine and now at baseline, also seen by cardiology. Review of Systems Constitutional: Constitutional: Reports fatigue Eyes: Eyes: Reports no additional eye complaints ENT: Reports Normal hearing present Cardiovascular: Cardiovascular: Reports palpitations Respiratory: Respiratory: Denies cough Gastrointestinal: Gastrointestinal: Denies abdominal pain, Reports melena and Denies nausea Genitourinary: Genitourinary: Denies dysuria Musculoskeletal: Musculoskeletal: Reports arthralgias Integumentary/Breasts: Skin/Breast: Denies pruritus Neurologic: Denies headache(s) Psychiatric: Psychiatric: Denies confusion [facility] Past Medical History Medical History Degenerative disc disease Diet-controlled diabetes mellitus Hypertension Lower extremity cellulitis Hospitalized for such in March 2012 and April 2016. Osteoarthritis Parkinsons disease Surgical History Surgical History History of left inguinal hernia repair History of tonsillectomy Family History Family History Mother Brain aneurysm Cancer Breast cancer Colon cancer Father Acute myocardial infarction Social History Social History Social History: Surrogate decision maker: Myriam Kingston, spouse. Code status: Full code. Smoking status: Never smoker Alcohol intake: former Drinks per week: 0 Substance use: never Additional living arrangements comments: Resides with his in [place]. He has a biological daughter and a stepson. 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 Gender identity (if verbalized by the patient): Male Spiritual care concerns: No Meds Home Medications and Allergies Home Medications Medication Instructions Recorded Confirmed Type carbidopa-levodopa See Rx Instructio
--- NOTE | 2020-10-24 14:55 | PM.IMPN ---
Progress Note: A&P Assessment and Plan (1) SVT (supraventricular tachycardia): Code(s): I47.1 - Supraventricular tachycardia Status: Acute Assessment and Plan: -treated with adenosine 6 mg, now in normal sinus rhythm -continue telemetry -patient started on Lopressor 25 mg b.i.d., cardiology consulted -will treat underlying issue, likely causes anemia from GI bleed. 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 Parkinson's, hypertension, osteoarthritis and degenerative disc disease for which patient is taking NSAID for long time, and family history of colon cancer his mother had a colon cancer at age of 73, patient presented emergency department with a complaint palpitation he felt while he was sitting in the restaurant upon arrival emergency department EKG showed rate was 150 and patient was in SVT, patient was given 6 mg of adenosine the rate trended down, patient was seen by his Cardiology patient recently had a cardiac echo and recently had stress test which was negative, patient was seen by pharmaceutical engineer here and no further workup is recommended and patient is cleared by the pharmaceutical engineer to be discharged, however upon arrival his hemoglobin was 7.6 and stool was positive for Hemoccult patient was given 1 unit of pack RBC patient is seen by GI recommended endoscopy as well as colonoscopy and patient has agreed, which is scheduled for tomorrow, patient is negative for COVID-19 will take him off the isolation. (2) Occult GI bleeding: Code(s): R19.5 - Other fecal abnormalities Status: Acute Assessment and Plan: -clear liquid diet and will keep NPO at midnight for EGD tomorrow -hemoglobin appears to be stable 7.6 to 7.4 likely slow bleed, hemoglobin was 12.8 in August 2020 -patient to receive 2 units packed red blood cells -stopping NSAIDs diclofenac -starting Protonix b.i.d. IV -GI consulted for EGD for suspected upper GI bleed -if no bleed culprit is identified may need colonoscopy. Patient states he has never had a colonoscopy before. (3) Anemia: Code(s): D64.9 - Anemia, unspecified Status: Acute Assessment and Plan: -likely acute blood loss anemia secondary to GI loss from NSAIDs possible ulcer -Hemoglobin 7.4, receiving 2 units packed red blood cells, will recheck in a.m. (4) Person under investigation for COVID-19: Code(s): Z20.828 - Contact with and (suspected) exposure to other viral communicable diseases Status: Acute Assessment and Plan: COVID test pending, no COVID symptoms, preoperative testing Additional Plan #chronic conditions -Parkinson's: Continue carbidopa-levodopa, chronic stable disease with right hand resting tremor -hyperlipidemia: Continue rosuvastatin -hypertension: Holding lisinopril while anemic and starting metoprolol -osteoarthritis: Stopping diclofenac for concern for GI bleed, pain control with [place] and morphine -diet-controlled type 2 diabetes: He does not take any diabetes medications, checking hemoglobin A1c. He was told he needed lisinopril for his kidneys. 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
[2020-10-24] MEDS: BISACODYL 5 MG TABLET EC 20 MG PO (17:28)
[2020-10-24 18:10] LABS: Hematocrit 28.8 % (42.0-52.0)
[2020-10-24] MEDS: PEG (High)/E-LYTE SOLN 4,000 ML BTL 4000 ML PO (19:04)
[2020-10-24] MEDS: ROSUVASTATIN 5 MG TABLET PO (21:21)
[2020-10-25] VITALS (9 sets, daily range): BP systolic 78–127; BP diastolic 40–84; PULSE 65–75; RESP 18–25; TEMP 36.5–36.7; O2SAT 99–100
[2020-10-25 00:35] LABS: Hematocrit 29.9 % (42.0-52.0); Hemoglobin 9.3 g/dL (14.0-18.0)
[2020-10-25] MEDS: MAGNESIUM CITRATE 300 ML BTL PO (04:20)
[2020-10-25] MEDS: CARBIDOPA/LEVODOPA 25/100 MG TABLET 2 TABLET PO ×2 (06:23→14:12)
[2020-10-25 06:37] LABS: Hematocrit 29.2 % (42.0-52.0); Hemoglobin 9.1 g/dL (14.0-18.0); Mean Corpuscular HGB Conc 31.2 g/dl (32-36); Mean Corpuscular Hemoglobin 28.3 pg (26-34); Mean Corpuscular Volume 90.7 fl (80-100); Mean Platelet Volume 10.1 fl (7.4-10.4); Platelet Count Result 353 k/mm3 (150-375); Red Blood Count 3.22 M/mm3 (4.6-6.20); Red Cell Distribution Width 14.5 % (11.5-14.5); White Blood Count 6.2 K/mm3 (4.5-10.0)
[2020-10-25 06:50] LABS: Anion Gap 9 mmol/L (8-16); Blood Urea Nitrogen 15 mg/dL (9-20); Calcium 9.2 mg/dL (8.4-10.2); Carbon Dioxide 26 mmol/L (22-30); Chloride 104 mmol/L (98-107); Estimated CRCL calculation 107 ml/min; Estimated Glomerular Filt Rate > 60; Glucose 98 mg/dL (75-110); Magnesium 2.1 mg/dL (1.6-2.3); Potassium 3.7 mmol/L (3.4-5.0); Sodium 139 mmol/L (137-145)
[2020-10-25] MEDS: MULTIVITAMINS THERAPEUTIC TAB (*BKC) 1 TABLET PO (08:33)
[2020-10-25] MEDS: METOPROLOL TARTRATE 25 MG TABLET PO (08:33)
[2020-10-25] MEDS: PANTOPRAZOLE SODIUM IV 40 MG VIAL IV PUSH (08:35)
--- NOTE | 2020-10-25 11:19 | PC.NURSE ---
to gi lab per w/c
[2020-10-25] MEDS: LACTATED RINGERS 1,000 ML 150 ML IV CONT (11:24)
--- NOTE | 2020-10-25 11:52 | WPDANESEPPF ---
Anes - Initial Pre Proc Eval Procedure: Operation Date: 10/25/20 12:00 Proposed Procedures p Esophagogastroduodenoscopy & Colonoscopy - Phillip Davila MD Date/Time: 10/25/20 11:52 Surgeon: Aramis Mckeon MD Pre Op Diagnosis: svt, gi bleeding, covid pui Patient Data Age: 65 Gender: M Height: 6 ft 1 in Weight: 119.8 kg Last Vital Signs Temp 36.5 C 10/25/20 11:13 Pulse 71 10/25/20 11:13 Resp 18 10/25/20 11:13 BP 127/84 10/25/20 11:13 Pulse Ox 99 10/25/20 11:13 Allergies Allergy/AdvReac Type Severity Reaction Status Date / Time No Known Allergies Allergy Unknown Verified 10/23/20 21:27 Home Medications Medication Instructions Recorded Confirmed Type carbidopa-levodopa See Rx Instructions .ROUTE .COMPLEX 08/27/20 10/23/20 History diclofenac sodium 75 mg PO DAILY 08/27/20 10/23/20 History lisinopril 5 mg PO DAILY 08/27/20 10/23/20 History multivitamin 1 tablet PO DAILY 08/27/20 10/23/20 History rosuvastatin 5 mg PO HS 10/23/20 10/23/20 History Laboratory Tests 10/24/20 10/24/20 10/24/20 11:29 11:29 17:47 WBC RBC Hgb 8.6 g/dL L g/dL 9.0 g/dL L g/dL (14.0-18.0) (14.0-18.0) Hct 27.7 % L % 28.8 % L % (42.0-52.0) (42.0-52.0) MCV MCH MCHC RDW Plt Count MPV Sodium Potassium Chloride Carbon Dioxide Anion Gap BUN Creatinine Estim Creat Clear Calc Estimated GFR Glucose Calcium Magnesium Triglycerides 94 mg/dL mg/dL (<150) Cholesterol 192 mg/dL mg/dL (0-200) LDL Cholesterol Direct 139 mg/dL mg/dL HDL Direct 29 mg/dL mg/dL 10/25/20 10/25/20 10/25/20 00:13 06:16 06:16 WBC 6.2 K/mm3 K/mm3 (4.5-10.0) RBC 3.22 M/mm3 L M/mm3 (4.6-6.20) Hgb 9.3 g/dL L g/dL 9.1 g/dL L g/dL (14.0-18.0) (14.0-18.0) Hct 29.9 % L % 29.2 % L % (42.0-52.0) (42.0-52.0) MCV 90.7 fl fl (80-100) MCH 28.3 pg pg (26-34) MCHC 31.2 g/dl L g/dl (32-36) RDW 14.5 % % (11.5-14.5) Plt Count 353 k/mm3 k/mm3 (150-375) MPV 10.1 fl fl (7.4-10.4) Sodium 139 mmol/L mmol/L (137-145) Potassium 3.7 mmol/L mmol/L (3.4-5.0) Chloride 104 mmol/L mmol/L (98-107) Carbon Dioxide 26 mmol/L mmol/L (22-30) Anion Gap 9 mmol/L mmol/L (8-16) BUN 15 mg/dL mg/dL (9-20) Creatinine 0.80 mg/dL mg/dL (0.7-1.3) Estim Creat Clear Calc 107 ml/min ml/min Estimated GFR > 60 (59 - ) Glucose 98 mg/dL mg/dL (75-110) Calcium 9.2 mg/dL mg/dL (8.4-10.2) Magnesium 2.1 mg/dL mg/dL (1.6-2.3) Triglycerides Cholesterol LDL Cholesterol Direct HDL Direct Patient hx anesthesia problems: none Family hx anesthesia problems: none [facility] Past Medical History Medical History Acute blood loss anemia Degenerative disc disease Diet-controlled diabetes mellitus Hypertension Lower extremity cellulitis Hospitalized for such in March 2012 and April 2016. Osteoarthritis Parkinsons disease Surgical History Surgical History History of left inguinal hernia repair History of tonsillectomy Family History Family History Mother Brain aneurysm Cancer Breast cancer Colon cancer Father Acute myocardial infarction Social History Social History Social History: Surrogate decision maker: Myriam Kingston, spouse. Code status: Full co
--- NOTE | 2020-10-25 13:12 | SUR.OPER ---
EGD START 1250, END 1255 COLONOSCOPY START 1300, END 1312
--- NOTE | 2020-10-25 14:00 | PC.NURSE ---
returned to room from GI lab.
--- NOTE | 2020-10-25 14:30 | PM.PNCARD ---
Progress Note: A&P Assessment and Plan (1) SVT (supraventricular tachycardia): Code(s): I47.1 - Supraventricular tachycardia Status: Acute Assessment and Plan: Converted sinus rhythm, will start on metoprolol 25 b.i.d. and continue with that upon discharge, he is to follow up with his homogenizer operator for further evaluation, possibly ablation if he has significant recurrence (2) Occult GI bleeding: Code(s): R19.5 - Other fecal abnormalities Status: Acute (3) Person under investigation for COVID-19: Code(s): Z20.828 - Contact with and (suspected) exposure to other viral communicable diseases Status: Acute (4) Chest pressure: Code(s): R07.89 - Other chest pain Status: Acute Assessment and Plan: So far cardiac enzymes negative, EKG is unremarkable, he had a stress test with his primary homogenizer operator which was negative recently, he needs to have a close follow-up, to consider further investigation if he has recurrence possibly with cardiac catheterization, however now he is pain free and he is okay to be discharged home to follow-up with his primary homogenizer operator Dr. Evans (5) Hypertension: Code(s): I10 - Essential (primary) hypertension Status: Acute Additional Plan He seems to be stable from cardiac standpoint to be discharged to have a follow-up with Dr. Evans in 1 week. I told feel free to call my office for any other inquiry Subjective Date/time seen: 10/25/20 14:30 Was getting EGD today Objective Data Vital Signs Vital Signs: Vital Signs - 24 hr 10/24/20 16:00 10/24/20 20:35 10/24/20 21:17 Temperature Pulse Rate 69 70 66 Respiratory Rate Blood Pressure Pulse Oximetry 10/24/20 22:00 10/25/20 00:00 10/25/20 04:00 Temperature 36.5 C Pulse Rate 71 65 66 Respiratory Rate 20 Blood Pressure 114/67 Pulse Oximetry 97 10/25/20 05:00 10/25/20 08:00 10/25/20 08:33 Temperature 36.7 C Pulse Rate 71 70 75 Respiratory Rate 20 Blood Pressure 111/55 L Pulse Oximetry 100 10/25/20 11:13 10/25/20 13:18 10/25/20 13:28 Temperature 36.5 C Pulse Rate 71 65 66 Respiratory Rate 18 21 H 22 H Blood Pressure 127/84 78/40 L 95/56 L Pulse Oximetry 99 99 99 10/25/20 13:38 Temperature Pulse Rate 68 Respiratory Rate 25 H Blood Pressure 104/67 Pulse Oximetry 100 Intake/Output Intake/Output: Intake & Output 10/22/20 10/23/20 10/24/20 10/25/20 23:59 23:59 23:59 23:59 Intake Total 300 1800 1900 Balance 300 1800 1900 Meds/Results Medications: Active Medications Generic Name Dose Route Start Last Admin Trade Name Freq PRN Reason Stop Dose Admin Hydrocodone Bitart/Acetaminophen 1 tab 10/23/20 19:14 Hydrocodone/Acetaminophen (*Crx) 5-325 Mg Tablet PO Q4H PRN Pain Rated 4-6 Carbidopa/Levodopa 2 tablet 10/24/20 06:30 10/25/20 14:12 Carbidopa/Levodopa 25/100 Mg Tablet PO 2 tablet AC SWETA Administration Metoprolol Tartrate 25 mg 10/23/20 21:00 10/25/20 08:33 Metoprolol Tartrate 25 Mg Tablet PO 25 mg Q12HR SWETA Administration Morphine Sulfate 4 mg 10/23/20 19:14 Morphine Sulfate (*Crx) 4 Mg/Ml Inj IV PUSH Q2H PRN Pain Rated 7-10 Multivitamins Therapeutic 1 tablet 10/24/20 09:00 10/25/20 08:33 Multivitamins Therapeutic Tab (*Bkc) PO 1 tablet DAILY SWETA Administration Ondansetron HCl 4 mg 10/23/20 19:14 Ondansetron Inj 4 Mg/2 Ml Vial IV PUSH Q4H PRN Nausea Pantoprazole Sodium 40 mg 10/25/20 21:00 Pantoprazole 40 Mg Tablet PO Q12HR SWETA Rosuvastatin Calcium 5 mg 10/24/20 21:00 10/24/20 21:21 Rosuvastatin 5 Mg Tablet PO 5 mg HS SWETA Administration Radiology Results: ITS Impressions Chest X-Ray 10/23/20 15:41 IMPRESSION: 1. No acute cardiopulmonary abnormality. Labs Labs: Laboratory Results - last 24 hr 10/24/20 10/25/20 10/25/20 17:47 00:13 06:16 WBC 6.2 RBC 3.22 L Hgb 9
--- NOTE | 2020-10-25 14:34 | PM.DS ---
DS: Admitting Diagnosis Admitting Diagnosis Admitting Diagnosis: svt, gi bleeding, covid pui DS: Discharge Diagnosis Discharge Diagnosis (1) SVT (supraventricular tachycardia): Code(s): I47.1 - Supraventricular tachycardia Status: Acute Assessment and Plan: -treated with adenosine 6 mg, now in normal sinus rhythm -continue telemetry -patient started on Lopressor 25 mg b.i.d., cardiology consulted -will treat underlying issue, likely causes anemia from GI bleed. 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's, hypertension, osteoarthritis and degenerative disc disease for which patient is taking NSAID for long time, and family history of colon cancer his mother had a colon cancer at age of 73, patient presented emergency department with a complaint palpitation he felt while he was sitting in the restaurant upon arrival emergency department EKG showed rate was 150 and patient was in SVT, patient was given 6 mg of adenosine the rate trended down, patient was seen by his Cardiology patient recently had a cardiac echo and recently had stress test which was negative, patient was seen by payable representative here and no further workup is recommended and patient is cleared by the payable representative to be discharged, however upon arrival his hemoglobin was 7.6 and stool was positive for Hemoccult patient was given 1 unit of pack RBC patient is seen by GI recommended endoscopy as well as colonoscopy and patient has agreed, which is scheduled for tomorrow, patient is negative for COVID-19 will take him off the isolation. (2) Occult GI bleeding: Code(s): R19.5 - Other fecal abnormalities Status: Acute Assessment and Plan: -clear liquid diet and will keep NPO at midnight for EGD tomorrow -hemoglobin appears to be stable 7.6 to 7.4 likely slow bleed, hemoglobin was 12.8 in August 2020 -patient to receive 2 units packed red blood cells -stopping NSAIDs diclofenac -starting Protonix b.i.d. IV -GI consulted for EGD for suspected upper GI bleed -if no bleed culprit is identified may need colonoscopy. Patient states he has never had a colonoscopy before. (3) Anemia: Code(s): D64.9 - Anemia, unspecified Status: Acute Assessment and Plan: -likely acute blood loss anemia secondary to GI loss from NSAIDs possible ulcer -Hemoglobin 7.4, receiving 2 units packed red blood cells, will recheck in a.m. (4) Person under investigation for COVID-19: Code(s): Z20.828 - Contact with and (suspected) exposure to other viral communicable diseases Status: Acute Assessment and Plan: COVID test pending, no COVID symptoms, preoperative testing DS: Summary Hospital Course Reason for hospitalization: Chief complaint: svt, gi bleeding, covid pui Narrative: Stoney Kingston is a 65 year old male with past medical history of Parkinson's, hypertension, hyperlipidemia, osteoarthritis who presents to the ED with complaints of fatigue. He has been feeling like he has been getting weaker and weaker over the last month. He endorses taking diclofenac used to take 3 pills a day now cut down to 1 pill daily. Denies any history of gastric ulcers or bleeding. 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 States he has never had a colonoscopy before. His mother had colon cancer at age 74 or 78. He denies hemorrhoids. He has never had issues with anemia before. For his heart he has felt he has had fast heart rates in the past which has slowed down on their own. Does not take any stimulants, cut down on caffeine. He has had an echocardiogram done 3 weeks ago. Sees a payable representative. In the ED: EKG showed SVT rate 155, subsequent EKG after adenosine 6mg x1 showed normal sinus rhythm rate 92. Occult blood was positive. Hemoglobin 7.4. Patient was given 2 units of packed red blood cells and P
== END 2020-10-25 15:15 | disposition home or self-care (01) ==
LOC: ANHED 20:11 → ANH3MEDSUR 20:27
PROVIDERS: Internal Medicine Gastroenterology; Specialist; Student in an Organized Health Care Education/Training Program; Admitting Provider Family Medicine; Emergency Provider Emergency Medicine; PCP Student in an Organized Health Care Education/Training Program; Visit Provider Family Medicine
PROC: 0DJ08ZZ Inspection of Upper Intestinal Tract, Via Natural or Artificial Opening Endoscopic (ICD-10-PCS; CPT 43235; principal; 2020-10-25 12:00)
DX: I47.1 Supraventricular tachycardia (principal); K29.61 Other gastritis with bleeding; K57.31 Diverticulosis of large intestine without perforation or abscess with bleeding; K92.1 Melena; R07.89 Other chest pain; K64.8 Other hemorrhoids; Z20.828 Contact with and (suspected) exposure to other viral communicable diseases; D62 Acute posthemorrhagic anemia; D50.9 Iron deficiency anemia, unspecified; G20 Parkinson's disease; I10 Essential (primary) hypertension; E78.5 Hyperlipidemia, unspecified; M19.90 Unspecified osteoarthritis, unspecified site; E11.9 Type 2 diabetes mellitus without complications; Z80.0 Family history of malignant neoplasm of digestive organs
CPT/HCPCS: 45378; 43239; 36415; 36430; 71045; 80048; 80061; 83036; 83735; 84484; 85014; 85018; 85025; 85027; 85610; 85730; 86850; 86900; 86901; 86923; 87081; 87635; 88305; 93005; 96361; 96374; 96375; 96376; 99285; A9270; C9113; C9803; G0378; J0153; J1940; J2704; J7030; J7050; J7120; P9016; U0003

== ENCOUNTER 2020-11-18 10:56 | Outpatient (CLI) | payer OTHER, MEDICARE, SELFPAY ==
[2020-11-18 11:49] LABS: Basophils Percent Auto 0.2 % (0.2-1.2); Eosinophils Absolute Auto 0.2 K/mm3 (0-0.3); Eosinophils Percent Auto 1.8 % (0-4.4); Hematocrit 33.9 % (42.0-52.0); Hemoglobin 10.1 g/dL (14.0-18.0); Immature Granulocyte Absolute 0.04 K/mm3 (0.00-0.031); Immature Granulocyte Percent A 0.4 % (0-0.5); Lymphocytes Absolute Auto 1.36 K/mm3 (0.9-3.2); Lymphocytes Percent Auto 15.1 % (18.3-44.2); Mean Corpuscular HGB Conc 29.8 g/dl (32-36); Mean Corpuscular Hemoglobin 24.9 pg (26-34); Mean Corpuscular Volume 83.5 fl (80-100); Monocytes Absolute Auto 0.7 K/mm3 (0.1-0.6); Monocytes Percent Auto 7.2 % (2.6-8.5); Neutrophils Absolute Auto 6.8 K/mm3 (1.3-6.7); Neutrophils Percent Auto 75.3 % (45.5-73.1); Platelet Count Result 338 k/mm3 (150-375); Red Blood Count 4.06 M/mm3 (4.6-6.20); Red Cell Distribution Width 15.9 % (11.5-14.5)
[2020-11-18 12:12] LABS: Alanine Aminotransferase 8 U/L (4-50); Albumin Level 4.4 g/dL (3.5-5.1); Alkaline Phosphatase 71 U/L (38-126); Anion Gap 8 mmol/L (8-16); Aspartate Amino Transferase 23 U/L (17-59); Bilirubin,Total 0.3 mg/dL (0.2-1.3); Blood Urea Nitrogen 19 mg/dL (9-20); Calcium 9.6 mg/dL (8.4-10.2); Carbon Dioxide 29 mmol/L (22-30); Chloride 106 mmol/L (98-107); Creatine Kinase 67 U/L (55-170); Estimated Glomerular Filt Rate > 60; Glucose 110 mg/dL (75-110); Potassium 4.4 mmol/L (3.4-5.0); Sodium 143 mmol/L (137-145)
[2020-11-18 12:16] LABS: Creatinine Urine 194.9 mg/dL
[2020-11-18 12:46] LABS: Thyroid Stimulating Hormone Reflex 0.603 uIU/mL (0.465-4.68)
[2020-11-18 12:53] LABS: MALB Creatinine Ratio 266.1 mg/g (0-30); Microalbumin Urine Random 518.7 mg/L (0-16.7)
[2020-11-18 12:56] LABS: Hypochromasia 1+ (NORMAL); Large Platelets Present; Ovalocytes 1+ (NORMAL); Platelet Estimate Adequate (Adequate)
[2020-11-18 13:04] LABS: Hepatitis C Virus Antibody Negative (Negative)
== END 2020-11-18 10:57 | disposition home or self-care (01) ==
PROVIDERS: PCP Student in an Organized Health Care Education/Training Program; Visit Provider Student in an Organized Health Care Education/Training Program
DX: Z00.00 Encounter for general adult medical examination without abnormal findings (principal); K92.2 Gastrointestinal hemorrhage, unspecified; Z11.59 Encounter for screening for other viral diseases; Z13.220 Encounter for screening for lipoid disorders; E11.9 Type 2 diabetes mellitus without complications; Z13.29 Encounter for screening for other suspected endocrine disorder; Z13.228 Encounter for screening for other metabolic disorders; Z13.0 Encounter for screening for diseases of the blood and blood-forming organs and certain disorders involving the immune mechanism
CPT/HCPCS: 36415; 80053; 82043; 82550; 84153; 84443; 85025; 86803; G0103

== ENCOUNTER 2021-01-14 04:52 | Emergency (ER) | payer OTHER, MEDICARE, SELFPAY ==
[2021-01-14] VITALS (111 sets, daily range): BP systolic 98–146; BP diastolic 48–94; PULSE 80–176; RESP 13–30; TEMP 36.7; O2SAT 75–100
--- NOTE | ~2021-01-14 | CT_ITS ---
EXAMINATION: CTA chest PE abdomen pel DATE: 01/14/2021 06:32 INDICATION: Shortness of breath with exertion. TECHNIQUE: Computed tomography angiography (CTA) of the chest was performed with 100 mL Omnipaque-350 intravenous contrast timed to evaluate the pulmonary arteries. Coronal maximum intensity projection 3D-reconstructions were created by the technologist. Computed tomography (CT) of the abdomen and pelv is was performed with intravenous contrast. Automated exposure control and iterative reconstruction t echnique were employed. The dose-length product was 2712.59 mGy-cm. COMPARISON: None. FINDINGS: CTA chest: A calcified left lung nodule and calcified left hilar lymph nodes are consistent with old granulomatous disease. There is mild atelectasis bilaterally. No pleural effusion. The heart size is normal. No pericardial effusion. There are calcifications of aortic valve and coronary arteries. Ther e is no pulmonary embolus. There is bilateral gynecomastia. There is chronic height loss of multiple thoracic vertebral bodies. There is mild thoracic spondylosis. CT abdomen and pelvis: Calcifications in the liver and spleen are consistent with old granulomatous d isease. The gallbladder is normal in size. The pancreas and right adrenal gland are normal. There is a 1.7 cm mass of left adrenal gland measuring soft tissue attenuation. There are cysts in the kidneys measuring up to 12 mm on the left. There is a 2 mm stone in right kidney. There are 3 stones in left kidney measuring up to 6 mm. There are scattered diverticula in the colon. The appendix is normal. I n the left abdomen, there is a 10.1 x 9.3 cm mass involving the duodenal jejunal flexure with central necrosis that is contiguous with the bowel lumen. There is extensive fat stranding around this area. There are scattered foci of free intraperitoneal gas. The mass extends to the colon and other loops of small bowel. There is a mildly enlarged periportal lymph node. There is a small volume of ascites. There is moderate lumbar spondylosis. IMPRESSION: 1. No pulmonary embolus. Sensitivity is mildly decreased by motion artifact. 2. 10.1 cm mass involving the duodenal jejunal flexure with central necrosis that is contiguous with the bowel lumen. This finding is suspicious for gastrointestinal stromal tumor or adenocarcinoma. 3. Scattered foci of free intraperitoneal gas, likely secondary to perforation at the duodenal jejuna l mass. I discussed this result with Dr. Elizabeth. 4. Mildly enlarged periportal lymph node. 5. Small volume of ascites. Reviewed, dictated and finalized at location A. E SHEETFED PRESS OPERATOR IMPRESSION: 1. No pulmonary embolus. Sensitivity is mildly decreased by motion artifact. 2. 10.1 cm mass involving the duodenal jejunal flexure with central necrosis th at is contiguous with the bowel lumen. This finding is suspicious for gastroint estinal stromal tumor or adenocarcinoma. 3. Scattered foci of free intraperitoneal gas, likely secondary to perforation at the duodenal jejunal mass. I discussed this result with Dr. Elizabeth. 4. Mildly enlarged periportal lymph node. 5. Small volume of ascites.
--- NOTE | ~2021-01-14 | XR_ITS ---
EXAMINATION: XR chest 1V portable DATE: 01/14/2021 06:05 INDICATION: Shortness of breath. TECHNIQUE: A single frontal view of the chest was obtained. COMPARISON: Chest single view 10/23/2020, chest CT 01/14/2021 FINDINGS: There is mild atelectasis in the lower lung zones. A calcified left lung nodule and calcifi ed left hilar lymph nodes are consistent with old granulomatous disease. No pleural effusion or pneum othorax. The heart size is normal. IMPRESSION: 1. Mild atelectasis in the lower lung zones. Reviewed, dictated and finalized at location A. SION THERAPY NURSE
--- NOTE | 2021-01-14 05:08 | ECG_ITS ---
Measurements Intervals Norris Rate: 93 P: 66 SC: 155 QRS: -11 QRSD: 100 T: 30 QT: 351 QTc: 438 Interpretive Statements SINUS RHYTHM ATRIAL PREMATURE COMPLEX BASELINE ARTIFACT- I, II, III, AVR, AVL, AVF BORDERLINE ECG Electronically Signed On 01-14-2021 7:01:53 DASHBOARD DEVELOPER by Geronimo De La Rosa D.O.
--- NOTE | 2021-01-14 05:10 | ED.GENADULT ---
HPI - General Adult General Chief complaint: Arrhythmia/Palpitations Stated complaint: Rapid HR Time Seen by Provider: 01/14/21 04:59 Source: patient Mode of arrival: EMS Limitations: no limitations History of Present Illness HPI narrative: This is a 65 year old male with history of anemia, PUD, SVT, hypertension and morbid obesity who presents for via EMS for evaluation of an elevated HR. He states he has not felt well since yesterday after noon around 3 pm. He reports mid abdominal cramping with sob with exertion. He has been monitoring his HR at home and he states he HR has been intermittently elevated. HE denies chest pain, nausea, vomiting or fever. He also denies melena, and his last bowel movement was 2 days ago. He is concerned that his hemoglobin may be low so he came to ER. He states the last time he felt like this he was found to be anemic due to an ulcer. His presidential helicopter crew chief is Dr. Evans Related Data Home Medications Medication Instructions Recorded Confirmed carbidopa-levodopa See Rx Instructions .ROUTE .COMPLEX 08/27/20 10/23/20 diclofenac sodium 75 mg PO DAILY 08/27/20 10/23/20 lisinopril 5 mg PO DAILY 08/27/20 10/23/20 multivitamin 1 tablet PO DAILY 08/27/20 10/23/20 rosuvastatin 5 mg PO HS 10/23/20 10/23/20 vitamins A,C,Y-[id number]-[id number] cap PO 01/14/21 01/14/21 [Vision Formula (I-H-A-Zn-jose antonio)] Allergies Allergy/AdvReac Type Severity Reaction Status Date / Time No Known Allergies Allergy Unknown Verified 01/14/21 05:49 Review of Systems Review of Systems: All systems reviewed & are unremarkable except as noted in HPI and below Constitutional: Constitutional: Denies chills, Reports fatigue and Denies fever(s) Cardiovascular: Cardiovascular: Denies chest pain Respiratory: Respiratory: Denies cough and Reports dyspnea Gastrointestinal: Gastrointestinal: Reports abdominal pain, Reports constipation, Denies diarrhea, Reports nausea and Denies vomiting PMFSH Past Medical History Medical History Acute blood loss anemia Degenerative disc disease Diet-controlled diabetes mellitus Hypertension Lower extremity cellulitis Hospitalized for such in March 2012 and April 2016. Osteoarthritis Parkinsons disease Surgical History Surgical History History of left inguinal hernia repair History of tonsillectomy Family History Family History Mother Brain aneurysm Cancer Breast cancer Colon cancer Father Acute myocardial infarction Social History Social History Social History: Surrogate decision maker: Myriam Kingston, spouse. Code status: Full code. Smoking status: Never smoker Alcohol intake: former Drinks per week: 0 Substance use: never Additional living arrangements comments: Resides with his in [place]. He has a biological daughter and a stepson. 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 Gender identity (if verbalized by the patient): Male Spiritual care concerns: No Exam Const: General: no acute distress and alert Nutritional Appearance: obese Orientation/consciousness: patient oriented x3 Eyes: EOM: EOMs intact bilaterally Resp: Effort & Inspection: normal respiratory effort and no retractions Auscultation: clear to auscultation bilaterally Cardio: Rate: regular rate Rhythm: regular rhythm Heart sounds: no murmurs GI: GI Palp: Yes Soft to palpation, Yes Tenderness to palpation present (GI) (epigastric) and No Guarding due to palpation present (GI) Auscultation: normal bowel sounds Skin: General skin exam: pallor Neuro: General: patient oriented x3 and moves all extremities Extrem: General: edema Psych: Mental Status: mental status grossly normal Affect: normal affect Course Reevaluation(s)
--- NOTE | 2021-01-14 05:28 | PC.NURSE ---
Patient's HR was 171 on monitor, patient denies any cp or sob. Patient instructed on vagal maneuver and was able to decrease his HR to 93. ERP and this nurse in room at time patient HR increased and vagal maneuver performed.
[2021-01-14 05:29] LABS: Basophils Percent Auto 0.1 % (0.2-1.2); Hematocrit 30.7 % (42.0-52.0); Hemoglobin 9.1 g/dL (14.0-18.0); Immature Granulocyte Absolute 0.07 K/mm3 (0.00-0.031); Immature Granulocyte Percent A 0.4 % (0-0.5); Lymphocytes Absolute Auto 0.98 K/mm3 (0.9-3.2); Lymphocytes Percent Auto 5.1 % (18.3-44.2); Mean Corpuscular HGB Conc 29.6 g/dl (32-36); Mean Corpuscular Hemoglobin 22.6 pg (26-34); Mean Corpuscular Volume 76.4 fl (80-100); Mean Platelet Volume 11.1 fl (7.4-10.4); Monocytes Absolute Auto 1.1 K/mm3 (0.1-0.6); Monocytes Percent Auto 5.9 % (2.6-8.5); Neutrophils Absolute Auto 17.1 K/mm3 (1.3-6.7); Neutrophils Percent Auto 88.5 % (45.5-73.1); Platelet Count Result 291 k/mm3 (150-375); Red Blood Count 4.02 M/mm3 (4.6-6.20); Red Cell Distribution Width 17.8 % (11.5-14.5); White Blood Count 19.3 K/mm3 (4.5-10.0)
[2021-01-14 05:41] LABS: INR 1.6; Prothrombin Time 19.7 Seconds (11.1-14.7)
[2021-01-14 05:42] LABS: Partial Thromboplastin Time 30.3 SECONDS (22.3-36.8)
[2021-01-14 05:43] LABS: Alanine Aminotransferase 11 U/L (4-50); Albumin Level 3.6 g/dL (3.5-5.1); Alkaline Phosphatase 57 U/L (38-126); Anion Gap 5 mmol/L (8-16); Aspartate Amino Transferase 15 U/L (17-59); Bilirubin,Total 0.6 mg/dL (0.2-1.3); Blood Urea Nitrogen 23 mg/dL (9-20); Calcium 8.9 mg/dL (8.4-10.2); Carbon Dioxide 27 mmol/L (22-30); Chloride 107 mmol/L (98-107); Estimated CRCL calculation 115 ml/min; Estimated Glomerular Filt Rate > 60; Glucose 155 mg/dL (75-110); Lipase 28 U/L (23-300); Magnesium 1.6 mg/dL (1.6-2.3); Potassium 3.8 mmol/L (3.4-5.0); Sodium 139 mmol/L (137-145)
[2021-01-14 05:44] LABS: D Dimer 3.88 ug/mL (<0.48)
[2021-01-14] MEDS: METOPROLOL TARTRATE INJ 5 MG/5 ML VIAL IV PUSH ×2 (05:51→06:31)
[2021-01-14 05:53] LABS: Hypochromasia 1+ (NORMAL); Ovalocytes 1+ (NORMAL); Platelet Estimate Adequate (Adequate)
[2021-01-14 05:55] LABS: Troponin I < 0.012 ng/mL (0.000-0.034)
[2021-01-14 05:57] LABS: Add Urine Microscopic? YES; Appearance Urine Clear (Clear); Bilirubin Urine Negative (Negative); Blood Urine Negative (Negative); Color Urine Yellow (Yellow); Glucose Urine UA Negative (Negative); Ketones Urine Negative (Negative); Leukocyte Esterase Ur Negative LEU/UL (Negative); Mucus Urine Few /lpf; Nitrate Urine Negative (Negative); Protein Urine 1+ mg/dL (Negative); Specific Grav Ur 1.023 (1.001-1.035); Squamous Epithelial Cell Urine Rare /hpf (Few); Urobilinogen Urine Negative mg/dL (<2.0)
[2021-01-14] MEDS: SODIUM CHLORIDE 0.9% IV 500 ML 999 ML IV CONT (06:01)
[2021-01-14] MEDS: METOPROLOL TARTRATE 50 MG TAB 25 MG PO (06:04)
--- NOTE | 2021-01-14 06:14 | PC.NURSE ---
Patient taken to CT.
[2021-01-14] MEDS: LACTATED RINGERS 1,000 ML 999 ML IV CONT (07:01)
--- NOTE | 2021-01-14 08:07 | PM.CNCAR ---
Assessment and Plan Assessment and plan (1) SVT (supraventricular tachycardia): Code(s): I47.1 - Supraventricular tachycardia Status: Acute Assessment and Plan: Patient with history of SVT who presents again with palpitations. 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 His TSH is 0.6 (low normal). He has leukocytosis but no fever. He had CT of chest with no PE but incidental mass. For now will continue home dose of Metoprolol and add Cardizem 30 mg Q6. No need to start drip unless he tachycardia sustain. Will also replace K and Mg. He had recent echo and stress test with his primary client support analyst. Will need to obtain records. Per patient report both were normal (2) Mass of duodenum: Code(s): K31.89 - Other diseases of stomach and duodenum Status: Acute Assessment and Plan: Surgery consult called per ER (3) Hypertension: Code(s): I10 - Essential (primary) hypertension Status: Acute Assessment and Plan: Will hold Lisinopril while starting pt on Cardizem to avoid hypotension. Continue Metoprolol History of Present Illness History of Present Illness Consult date/time: 01/14/21 08:07 65 y/o with h/o obesity, Parkinson's, HTN, DM (diet controlled), Paroxysmal SVT who presents with palpitations He is known to me from recent admissions in Aug 2020 and Oct 2020. Both with tachycardia and was found to have SVT, at one time converted to sinus after Adenosine. 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 He went home and checked his pulse with oximeter and it was 160 so he came to ER. IN ER he has been going in and out of SVT that appears like AVNRT. 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 Surgery consult was called for further evaluation of that mass. Labs notable for leukocytosis. Cr normal, K 3.8. mg 1.6 He is followed by client support analyst (Dr Evans) and is actually scheduled for ablation in 2 weeks. He denies chest pain or dyspnea. He admits top fatigue. He has lower ext edema and he contributes that to eating too much salt. He is not on diuretics. He had sleep study that he reports was negative for sleep apnea EKG shows: Sinus rhythm with PACs. Review of tele shows paroxysms of SVT with HR up to 160s-170s. Never smoker. He had alcohol issues in the past but no active alcohol use now for years. Reason For Visit: Duodenal jejunal mass with perforation/SVT Review of Systems Review of Systems: All systems reviewed & are unremarkable except as noted in HPI and below Constitutional: Constitutional: Denies fatigue and Denies headache(s) Eyes: Eyes: Denies blurry vision ENT: Reports Normal hearing present and Denies headache(s) Cardiovascular: Cardiovascular: Denies chest pain, Denies diaphoresis, Denies pedal edema, Denies leg edema, Denies lightheadedness, Denies palpitations and Denies dyspnea Respiratory: Respiratory: Denies cough and Denies dyspnea Gastrointestinal: Gastrointestinal: Denies abdominal pain Musculoskeletal: Musculoskeletal: Denies back pain Neurologic: Reports Normal hearing present and Denies headache(s) Psychiatric: Psychiatric: Denies anxiety Endocrine: Endocrine: Denies fatigue and Denies palpitations [facility] Past Medical History Medical History Acute blood loss anemia Degenerative disc disease Diet-controlled diabetes mellitus Hypertension Lower extremity cellulitis Hospitalized for such in March 2012 and April 2016. Osteoarthritis Parkinsons disease Surgical History Surgical History History of left inguinal hernia repair History of tonsillectomy Family History Family History Moth
--- NOTE | 2021-01-14 08:26 | PC.NURSE ---
0800-report to klaudia in icu 0805-floral design teacher present speaking with pt 0850-pt amb to bathroom with help
--- NOTE | 2021-01-14 08:30 | PC.NURSE ---
0830- informed that surgery dept prefers that pt be transferred to higher level of care. ed charge and warehouse shipping receiving clerk informed.
[2021-01-14] MEDS: MAGNESIUM SULF 2 GM/WATER 50ML 2 GM/50 ML BAG IVPB (08:45)
[2021-01-14] MEDS: POTASSIUM CHLORIDE 20 MEQ PACKET (FOR LIQUID) 40 MEQ PO (08:45)
--- NOTE | 2021-01-14 09:00 | PC.NURSE ---
Addendum entered by Phyllis Allen RN 01/14/21 09:05: md instructs rn to hold po dose of cardizem and continue iv drip Original Note: instructed by ed physician to continue diltiazem drip despite previous orders to d/c. pt continues to have hr as high as 180 while on drip. no distress or c/o. pt will be transferred to [place] [facility] today. pt aware
[2021-01-14] MEDS: SODIUM CHLORIDE 0.9% IV 1,000 ML 125 ML IV CONT (09:04)
--- NOTE | 2021-01-14 09:46 | PM.CNGS ---
Assessment and Plan Assessment and plan (1) Mass of duodenum: Code(s): K31.89 - Other diseases of stomach and duodenum Status: Acute Assessment and Plan: images reviewed, likely c small perforation, given location of mass will need extensive surgery and would likely require tertiary center for care, pt has been accepted for transfer to the [facility] service at [facility] (2) SVT (supraventricular tachycardia): Code(s): I47.1 - Supraventricular tachycardia Status: Acute Assessment and Plan: Diltiazem gtt per cardiology History of Present Illness Consult details Consult date: 01/14/21 Reason for consult: abdominal pain Requesting physician: Taryn Elizabeth MD Narrative: Pt is a 65 y/o M presenting to ED c/o mid abdominal cramping/pain since yesterday. Pt reports episode have been progressively worsening and he has really not been able to eat. Pt denies any N/V. Pt reports he has also been SOB and c/o intermittent palpitations. Review of Systems Constitutional: Constitutional: Reports anorexia, Denies body ache(s), Denies chills, Reports fatigue, Denies fever(s), Denies headache(s), Reports lethargy, Denies malaise, Reports poor appetite, Denies weight gain and Denies weight loss Eyes: Eyes: Reports no additional eye complaints ENT: Reports system reviewed and no additional complaints, except as documented Cardiovascular: Cardiovascular: Denies chest pain, Reports irregular heart rhythm, Reports palpitations, Reports dyspnea and Reports dyspnea on exertion Respiratory: Respiratory: Reports dyspnea and Reports dyspnea on exertion Gastrointestinal: Gastrointestinal: Reports abdominal pain, Denies belching, Reports bloating, Reports constipation, Reports GI cramping, Denies nausea and Denies vomiting Genitourinary: Genitourinary: Reports no additional male genitourinary complaints Musculoskeletal: Musculoskeletal: Reports no additional musculoskeletal complaints Integumentary/Breasts: Skin/Breast: Reports system reviewed and no additional complaints, except as docu Neurologic: Reports system reviewed and no additional complaints, except as documented Psychiatric: Psychiatric: Reports no additional psychiatric complaints Endocrine: Endocrine: Reports no additional endocrine complaints Hematologic/Lymphatic: Hematologic/Lymphatic: Reports no additional hematologic/lymphatic complaints Allergic/Immunologic: Allergic/Immunologic: Reports no additional allergic/immunologic complaints PMFSH Past Medical History Medical History Acute blood loss anemia Degenerative disc disease Diet-controlled diabetes mellitus Hypertension Lower extremity cellulitis Hospitalized for such in March 2012 and April 2016. Osteoarthritis Parkinsons disease Surgical History Surgical History History of left inguinal hernia repair History of tonsillectomy Family History Family History Mother Brain aneurysm Cancer Breast cancer Colon cancer Father Acute myocardial infarction Social History Social History Social History: Surrogate decision maker: Myriam Kingston, spouse. Code status: Full code. Smoking status: Never smoker Alcohol intake: former Drinks per week: 0 Substance use: never Additional living arrangements comments: Resides with his in [place]. He has a biological daughter and a stepson. 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 Gender identity (if verbalized by the patient): Male Spiritual care concerns: No Meds Home Medications and Allergies Home Medications Medication Instructions Recorded Confirmed Type carbidopa-levodopa See Rx Instructions .ROUTE .COMPLEX 08/27/20 10/23/20 History diclofenac sodium 75 mg PO DAILY 08/27/20
--- NOTE | 2021-01-14 10:14 | PC.NURSE ---
ns drip started at 903 going at 999 bolus instead of ordered 125 cc/hr (per ed physician request)
--- NOTE | 2021-01-14 10:28 | PC.NURSE ---
updated by phone spoke with intake at center. face sheet faxed. radiology notified for images to disc
[2021-01-14 10:46] LABS: Glucose Point of Care 148 (65-105)
--- NOTE | 2021-01-14 12:38 | PC.NURSE ---
[facility] declined transfer [facility] accepted ETA 14:30 Trip # [id number]
--- NOTE | 2021-01-14 18:02 | PC.NURSE ---
carol moore hunter updated that ems will arrive for transport in 10 mins. no changes in pt condition
--- NOTE | 2021-01-14 18:50 | PC.NURSE ---
at 1825 transport via [facility] to [facility]. chart and imaging given to ems. belongings sent. pt remains on cardizem drip via pump. stable at time of transfer to [facility]
== END 2021-01-14 18:25 | disposition short-term general hospital (02) ==
LOC: ANHED 07:34 → ANHICU 08:30
PROVIDERS: Family Medicine; General Practice; Emergency Provider Emergency Medicine; PCP Student in an Organized Health Care Education/Training Program
DX: I47.1 Supraventricular tachycardia (principal); K31.89 Other diseases of stomach and duodenum; K63.1 Perforation of intestine (nontraumatic); E66.01 Morbid (severe) obesity due to excess calories; Z68.39 Body mass index [BMI] 39.0-39.9, adult; I10 Essential (primary) hypertension; E11.9 Type 2 diabetes mellitus without complications; G20 Parkinson's disease; M19.90 Unspecified osteoarthritis, unspecified site; Z87.11 Personal history of peptic ulcer disease; R18.8 Other ascites; R91.8 Other nonspecific abnormal finding of lung field; I49.1 Atrial premature depolarization; R06.02 Shortness of breath
CPT/HCPCS: 36415; 71045; 71275; 74177; 80053; 81001; 82948; 83605; 83690; 83735; 84484; 85025; 85380; 85610; 85730; 93005; 96361; 96365; 96366; 96367; 96368; 96375; 99285; A9270; J2543; J3475; J7030; J7040; J7120; Q9967

== ENCOUNTER 2023-06-19 00:53 | Emergency (ER) | payer OTHER, MEDICARE, SELFPAY ==
[2023-06-19] VITALS (26 sets, daily range): BP systolic 115–141; BP diastolic 68–78; PULSE 81–100; RESP 13–33; TEMP 36.4; O2SAT 94–100
--- NOTE | 2023-06-19 01:15 | ECG_ITS ---
Measurements Intervals [place] Rate: 95 P: 83 AL: 195 QRS: -33 QRSD: 136 T: 4 QT: 376 QTc: 474 Interpretive Statements SINUS RHYTHM MARKED LEFT AXIS DEVIATION [QRS AXIS < -30] RIGHT BUNDLE BRANCH BLOCK [120+ ms QRS DURATION, UPRIGHT V1, 40+ ms S IN I/aVL/V4/V5/V6] ABNORMAL ECG COMPARED TO ECG 01/14/2021 05:01:23 RIGHT BUNDLE-BRANCH BLOCK NOW PRESENT Electronically Signed On 06-19-2023 13:20:15 CDT by Carlos Zarate M.D.
[2023-06-19 01:44] LABS: Basophils Percent Auto 0.1 % (0.2-1.2); Eosinophils Percent Auto 0.2 % (0-4.4); Hematocrit 42.8 % (42.0-52.0); Hemoglobin 13.8 g/dL (14.0-18.0); Immature Granulocyte Absolute 0.02 K/mm3 (0.00-0.031); Immature Granulocyte Percent A 0.2 % (0-0.5); Lymphocytes Absolute Auto 0.51 K/mm3 (0.9-3.2); Lymphocytes Percent Auto 6.1 % (18.3-44.2); Mean Corpuscular HGB Conc 32.2 g/dl (32-36); Mean Corpuscular Hemoglobin 31.1 pg (26-34); Mean Corpuscular Volume 96.4 fl (80-100); Mean Platelet Volume 10.5 fl (7.4-10.4); Monocytes Absolute Auto 0.6 K/mm3 (0.1-0.6); Monocytes Percent Auto 6.7 % (2.6-8.5); Neutrophils Absolute Auto 7.2 K/mm3 (1.3-6.7); Neutrophils Percent Auto 86.7 % (45.5-73.1); Platelet Count Result 170 k/mm3 (150-375); Red Blood Count 4.44 M/mm3 (4.6-6.20); Red Cell Distribution Width 13.7 % (11.5-14.5); White Blood Count 8.3 K/mm3 (4.5-10.0)
[2023-06-19 01:56] LABS: INR 1.2; Prothrombin Time 15.8 Seconds (11.1-14.7)
[2023-06-19 01:57] LABS: Partial Thromboplastin Time 29.2 SECONDS (22.3-36.8)
[2023-06-19 01:58] LABS: Alanine Aminotransferase 11 U/L (6-50); Albumin Level 4.3 g/dL (3.5-5.1); Alkaline Phosphatase 64 U/L (38-126); Anion Gap 9 mmol/L (8-16); Aspartate Amino Transferase 37 U/L (17-59); Blood Urea Nitrogen 18 mg/dL (9-20); Calcium 8.7 mg/dL (8.4-10.2); Carbon Dioxide 25 mmol/L (22-30); Chloride 103 mmol/L (98-107); Estimated CRCL calculation 95 ml/min; Estimated Glomerular Filt Rate > 60; Glucose 169 mg/dL (65-110); Sodium 137 mmol/L (137-145)
--- NOTE | 2023-06-19 02:09 | ED.GENADULT ---
HPI - General Adult General Chief complaint: Weakness Stated complaint: LOWER EXTREMITY WEAKNESS Time Seen by Provider: 06/19/23 01:40 Source: patient, EMS and RN notes reviewed Mode of arrival: EMS Limitations: no limitations History of Present Illness HPI narrative: This is a 67 year old male with history of hypertension and parkinsons who presents for evaluation of sweating. Patient states he occasionally has difficulty walking due to his parkinson's . He states tonight he was walking when he felt like his legs locked up and he could not walk. He reports he stood for 30-[address] until he felt like he could take another step. He reports that while he was standing for a prolonged period he started sweating. He denies having associated chest pain, shortness of breath, nausea, vomiting, dizziness, abdominal pain, leg pain, back pain, numbness or tingling. He thinks he may need to have his carbidopa increased. Related Data Home Medications Medication Instructions Recorded Confirmed carbidopa 25 mg-levodopa 100 mg See Rx Instructions .Route .COMPLEX 08/27/20 10/23/20 tablet diclofenac sodium 75 mg 75 mg PO DAILY 08/27/20 10/23/20 tablet,delayed release lisinopril 5 mg tablet 5 mg PO DAILY 08/27/20 10/23/20 multivitamin 1 tablet PO DAILY 08/27/20 10/23/20 rosuvastatin 5 mg tablet 5 mg PO HS 10/23/20 10/23/20 vitamins A,C,R-blkz-iqrrma 4,296 cap PO 01/14/21 01/14/21 mcg-226 mg-90 mg capsule Allergies Allergy/AdvReac Type Severity Reaction Status Date / Time No Known Allergies Allergy Unknown Verified 06/19/23 01:10 Review of Systems Constitutional: Constitutional: Denies weakness Cardiovascular: Cardiovascular: Denies syncope, Denies rapid heart rate, Denies irregular heart rhythm, Denies leg edema and Denies dyspnea Respiratory: Respiratory: Denies chest congestion, Denies hemoptysis, Denies excessive phlegm production and Denies dyspnea Gastrointestinal: Gastrointestinal: Denies abdominal pain, Denies hematochezia, Denies diarrhea and Denies vomiting Genitourinary: Genitourinary: Denies hematuria, Denies dysuria, Denies penile discharge and Denies testicular pain Musculoskeletal: Musculoskeletal: Denies joint swelling, Denies loss of height and Denies muscle weakness Neurologic: Denies syncope, Denies focal weakness and Denies weakness PMFSH Past Medical History Medical History Acute blood loss anemia Degenerative disc disease Diet-controlled diabetes mellitus Hypertension Lower extremity cellulitis Hospitalized for such in March 2012 and April 2016. Osteoarthritis Parkinsons disease Surgical History Surgical History History of left inguinal hernia repair History of tonsillectomy Family History Family History Mother Brain aneurysm Cancer Breast cancer Colon cancer Father Acute myocardial infarction Social History Social History Social History: Surrogate decision maker: Myriam Kingston, spouse. Code status: Full code. Smoking status: Never smoker Alcohol intake: former Drinks per week: 0 Alcohol use details: Was a heavy drinker but quit many years ago. Substance use: never Additional living arrangements comments: Resides with his in [place]. He has a biological daughter and a stepson. 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 Gender identity (if verbalized by the patient): Male Spiritual care concerns: No Exam Const: General: no acute distress and alert Nutritional Appearance: obese Orientation/consciousness: patient oriented x3 Limitations: no limitations HENMT: Head: normal to inspection Eyes: EOM: EOMs intact bilaterally Chest: Chest palpation & inspection: normal inspection of the chest Resp: Effo
--- NOTE | 2023-06-19 02:33 | PC.NURSE ---
Jen, ED press technician obtained orthostatic vital signs, however patient did not feel safe standing. She was able to obtain sitting and lying vital signs.
[2023-06-19 03:58] LABS: Appearance Urine Cloudy (Clear); Bacteria Urine None Seen /hpf; Bilirubin Urine Negative (Negative); Blood Urine Negative (Negative); Color Urine Yellow (Yellow); Glucose Urine UA Negative (Negative); Ketones Urine Trace mg/dL (Negative); Leukocyte Esterase Ur Negative LEU/UL (Negative); Need Manual Microscopic Reviewed; Nitrate Urine Negative (Negative); Protein Urine 1+ mg/dL (Negative); Specific Grav Ur 1.022 (1.001-1.035); Squamous Epithelial Cell Urine None seen /hpf (Few); WBC Urine 0-5 /hpf; pH Urine 5.5 (5.0-9.0)
[2023-06-19 03:59] LABS: Add Urine Microscopic? YES
--- NOTE | 2023-06-19 04:15 | PC.NURSE ---
Patient able to stand with assistance and walk towards his room exit. Patient then turned and around and ambulated back to the stretcher. Patient assisted back onto stretcher.
[2023-06-19] MEDS: CARBIDOPA/LEVODOPA 25/100 MG TABLET 3 TABLET PO (04:34)
== END 2023-06-19 07:01 | disposition home or self-care (01) ==
PROVIDERS: Emergency Provider General Practice; PCP Student in an Organized Health Care Education/Training Program
DX: G20 Parkinson's disease (principal); I10 Essential (primary) hypertension; M19.90 Unspecified osteoarthritis, unspecified site
CPT/HCPCS: 36415; 80053; 81001; 85025; 85610; 85730; 93005; 99283; A9270

== ENCOUNTER 2024-05-10 22:20 | Emergency (ER) | payer OTHER, MEDICARE, SELFPAY ==
--- NOTE | ~2024-05-10 | CT_ITS ---
EXAMINATION: CT abdomen pelvis wo con DATE: 05/10/2024 23:15 INDICATION: Abdominal pain TECHNIQUE: Computed tomography (CT) of the abdomen and pelvis was performed without intravenous contr ast. Automated exposure control and iterative reconstruction technique were employed. The dose-length product was 1555.55 mGy-cm. COMPARISON: CT dated 01/14/2021 FINDINGS: Minimal dependent atelectasis in bilateral lower lobes. Heart size is normal. Atherosclerotic coronar y artery calcification and aortic valve calcification. No pericardial or pleural effusion. There are multiple hepatic and splenic calcifications consistent with old granulomatous disease. Sludge versus more likely gallstones in the dependent aspect of the is dilated gallbladder which gertrude ures up to 6 cm maximal diameter. No pericholecystic inflammatory stranding to more specifically sugg est acute cholecystitis. Or common bile duct is dilated to 1.2 cm there is no evident intrahepatic bi liary ductal dilation. Pancreas and right adrenal gland are normal. Linear suture line along the left adrenal gland. Lateral to the suture line in the lateral limb of the left adrenal gland is a 1.6 cm nodule which is unchanged since prior CT which would be most consistent with an adenoma. 2.4 cm low-attenuation right renal cyst. Indeterminate 1.3 cm soft tissue density exophytic lesion at the left kidney. Bilateral nonobstructing nephrolithiasis with at least 5 stones on the right and 4 stones on the left measuring up to 2 mm. No ureteral stones or hydronephrosis. Bladder is normal. Pro statomegaly. Interval resection of a prior large mass associated segments of large and small bowel with large and small bowel anastomotic suture lines in the left abdomen. No bowel obstruction. There are few scatter ed diverticula along the colon distal to the anastomotic suture line with no associated comparison to suggest diverticulitis. Normal appendix. No free intraperitoneal gas or fluid. No pathologically enl arged abdominal or pelvic lymphadenopathy. Small fat-containing umbilical hernia. Postoperative yoo es likely reflecting left inguinal hernia repair. Mild to moderate lumbar and lower thoracic spondylo sis. IMPRESSION: 1. A few bilateral 2 mm smaller nonobstructing renal stones with no ureteral stones or hydronephrosis . 2. Sludge versus gallstones within the dilated gallbladder and dilation the common bile duct 12 mm wi thout evident intrahepatic ductal or ductal dilation. Correlate clinically for evidence of biliary ob struction and/or acute cholecystitis. If clinically indicated this can be further evaluated with eith er ultrasound or HIDA scan. Reviewed, dictated and finalized at location A. IMPRESSION: 1. A few bilateral 2 mm smaller nonobstructing renal stones with no ureteral st ones or hydronephrosis. 2. Sludge versus gallstones within the dilated gallbladder and dilation the com mon bile duct 12 mm without evident intrahepatic ductal or ductal dilation. Cor relate clinically for evidence of biliary obstruction and/or acute cholecystiti s. If clinically indicated this can be further evaluated with either ultrasound or HIDA scan.
--- NOTE | ~2024-05-10 | XR_ITS ---
EXAMINATION: XR chest 1V DATE: 05/10/2024 23:14 INDICATION: Weakness and fever TECHNIQUE: frontal view of the chest was obtained. COMPARISON: Chest radiograph and CT dated 01/14/2021 FINDINGS: The lungs are clear with no focal airspace opacities, pulmonary edema, pleural effusion or pneumothor ax. Heart size is normal. Calcified left hilar lymph nodes consistent with old granulomatous disease. Bilateral reverse total shoulder arthroplasties. IMPRESSION: 1. No acute cardiopulmonary disease. Reviewed, dictated and finalized at location A.
[2024-05-10 22:16] VITALS: BP 121/41; PULSE 101; RESP 23; TEMP 37.1; O2SAT 95
[2024-05-10 22:25] VITALS: PULSE 101
[2024-05-10] MEDS: SODIUM CHLORIDE 0.9% IV 1,000 ML 999 ML IV CONT (23:22)
[2024-05-10 23:34] LABS: Appearance Urine Clear (Clear); Bacteria Urine None Seen /hpf; Bilirubin Urine Negative (Negative); Blood Urine Negative (Negative); Color Urine Dark Yellow (Yellow); Glucose Urine UA Negative (Negative); Ketones Urine Trace mg/dL (Negative); Leukocyte Esterase Ur Negative LEU/UL (Negative); Nitrate Urine Negative (Negative); Protein Urine 1+ mg/dL (Negative); Squamous Epithelial Cell Urine None Seen /hpf (Few); WBC Urine 0-5 /hpf (0-3); pH Urine 5.5 (5.0-9.0)
[2024-05-10 23:38] LABS: Add Urine Microscopic? YES
--- NOTE | 2024-05-10 23:51 | PC.NURSE ---
Halley Willis/[place] attempted to get full set of blood cultures. She was only able to get two green caps and one orange cap bottle filled. Lab was notified and states that it is okay.
[2024-05-10 23:53] VITALS: BP 116/76; PULSE 96; RESP 18; O2SAT 98
[2024-05-10 23:56] LABS: Basophils Percent Auto 0.4 % (0.2-1.2); Eosinophils Absolute Auto 0.1 K/mm3 (0-0.3); Eosinophils Percent Auto 2.6 % (0-4.4); Hematocrit 41.7 % (42.0-52.0); Hemoglobin 13.9 g/dL (14.0-18.0); Immature Granulocyte Absolute 0.02 K/mm3 (0.00-0.031); Immature Granulocyte Percent A 0.7 % (0-0.5); Lymphocytes Absolute Auto 0.42 K/mm3 (0.9-3.2); Lymphocytes Percent Auto 15.4 % (18.3-44.2); Mean Corpuscular HGB Conc 33.3 g/dl (32-36); Mean Corpuscular Hemoglobin 31.6 pg (26-34); Mean Corpuscular Volume 94.8 fl (80-100); Mean Platelet Volume 10.3 fl (7.4-10.4); Monocytes Absolute Auto 0.2 K/mm3 (0.1-0.6); Monocytes Percent Auto 6.3 % (2.6-8.5); Neutrophils Percent Auto 74.6 % (45.5-73.1); Platelet Count Result 149 k/mm3 (150-375); Red Cell Distribution Width 13.7 % (11.5-14.5); White Blood Count 2.7 K/mm3 (4.5-10.0)
[2024-05-11 00:07] LABS: Lactic Acid Reflex 1.2 mmol/L (0.7-2.0)
[2024-05-11 00:08] LABS: Alanine Aminotransferase 7 U/L (6-50); Albumin Level 3.6 g/dL (3.5-5.1); Alkaline Phosphatase 61 U/L (38-126); Anion Gap 7 mmol/L (4-12); Aspartate Amino Transferase 65 U/L (17-59); Bilirubin,Total 0.9 mg/dL (0.2-1.3); Blood Urea Nitrogen 18 mg/dL (9-20); Calcium 8.3 mg/dL (8.4-10.2); Carbon Dioxide 29 mmol/L (22-30); Chloride 98 mmol/L (98-107); Estimated CRCL calculation 105 ml/min; Estimated Glomerular Filt Rate > 60; Glucose 142 mg/dL (65-110); Lipase 46 U/L (23-300); Magnesium 1.7 mg/dL (1.6-2.3); Potassium 3.5 mmol/L (3.4-5.0); Sodium 134 mmol/L (137-145)
[2024-05-11 00:32] LABS: Influenza A QL RT-PCR Negative (Negative); Influenza B QL RT-PCR Negative (Negative); RSV RNA, RT-PCR Negative (Negative); SARS-CoV-2 RNA PCR Negative (Negative)
[2024-05-11 01:02] LABS: Procalcitonin 0.5 ng/mL
[2024-05-11 01:26] VITALS: BP 152/79; PULSE 98; RESP 28; O2SAT 97
--- NOTE | 2024-05-11 02:46 | ED.GENADULT ---
HPI - General Adult General Chief complaint: Weakness Stated complaint: FEVER, ?UTI, WEAKNESS X 3 DAYS Time Seen by Provider: 05/10/24 22:41 History of Present Illness HPI narrative: Patient is a 68-year-old gentleman who presents emergency department with chief complaint of fever urinary frequency and generalized malaise. Patient reports the last 3 days he has been having symptoms reports he was told he had some protein in his urine and reports that heart rate was a little fast and temperature up to 101.5. Patient reports he has had prior history of a tumor history of SVT patient does report that he has Parkinson's. Patient denies cough runny nose or sore throat Related Data Home Medications Medication Instructions Recorded Confirmed carbidopa 25 mg-levodopa 100 mg See Rx Instructions .Route .COMPLEX 08/27/20 10/23/20 tablet diclofenac sodium 75 mg 75 mg PO DAILY 08/27/20 10/23/20 tablet,delayed release lisinopril 5 mg tablet 5 mg PO DAILY 08/27/20 10/23/20 multivitamin 1 tablet PO DAILY 08/27/20 10/23/20 rosuvastatin 5 mg tablet 5 mg PO HS 10/23/20 10/23/20 vitamins A,C,X-juea-euxxhy 4,296 cap PO 01/14/21 01/14/21 mcg-226 mg-90 mg capsule Allergies Allergy/AdvReac Type Severity Reaction Status Date / Time No Known Allergies Allergy Unknown Verified 06/19/23 01:10 Review of Systems Review of Systems: A 10 system review of systems was completed on the patient and is negative except for what is stated in the HPI. Nursing and ancillary documentation was reviewed. [facility] Past Medical History Medical History Acute blood loss anemia Degenerative disc disease Diet-controlled diabetes mellitus Hypertension Lower extremity cellulitis Hospitalized for such in March 2012 and April 2016. Osteoarthritis Parkinsons disease Surgical History Surgical History History of left inguinal hernia repair History of tonsillectomy Family History Family History Mother Brain aneurysm Cancer Breast cancer Colon cancer Father Acute myocardial infarction Social History Social History Social History: Surrogate decision maker: Myriam Kingston, spouse. Code status: Full code. Smoking status: Never smoker Alcohol intake: former Drinks per week: 0 Alcohol use details: Was a heavy drinker but quit many years ago. Substance use: never Additional living arrangements comments: Resides with his in [place]. He has a biological daughter and a stepson. 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 Gender identity (if verbalized by the patient): Male Spiritual care concerns: No Exam Narrative: GENERAL: Well-appearing, well-nourished, and in no acute distress. HEAD: Normocephalic, atraumatic. EYES: PERRLA and EOMI. ENT: Nares clear, no rhinorrhea or epistaxis. Mucous membranes moist. NECK: Supple. CHEST: Clear to auscultation. No respiratory distress. HEART: Regular rate and rhythm. No murmur heard. Normal peripheral pulses. ABDOMEN: Soft, nontender, nondistended, normal active bowel sounds. EXTREMITIES: Normal range of motion. No edema. SKIN: Warm, dry, no rash. NEURO: No focal deficits. Alert and oriented x3. PSYCH: Normal mood and affect. Course Vital Signs Vital signs: Vital Signs Temperature 37.1 C 05/10/24 22:16 Pulse Rate 101 H 05/10/24 22:16 Respiratory Rate 23 H 05/10/24 22:16 Blood Pressure 121/41 L 05/10/24 22:16 Pulse Oximetry 95 05/10/24 22:16 Oxygen Delivery Room Air 05/10/24 22:16 Temperature 37.1 C 05/10/24 22:16 Pulse Rate 98 05/11/24 01:26 Respiratory Rate 28 H 05/11/24 01:26 Blood Pressure 152/79 H 05/11/24 01:26 Pulse Oximetry 97 05/11/24 01:26 Oxygen Delivery R
[2024-05-11] MEDS: SODIUM CHLORIDE 0.9% IV 1,000 ML 999 ML IV CONT (02:59)
== END 2024-05-11 05:03 | disposition home or self-care (01) ==
PROVIDERS: Emergency Provider Emergency Medicine; PCP Student in an Organized Health Care Education/Training Program
DX: B34.9 Viral infection, unspecified (principal); R35.0 Frequency of micturition; Z20.822 Contact with and (suspected) exposure to COVID-19; I10 Essential (primary) hypertension; M19.90 Unspecified osteoarthritis, unspecified site; E11.9 Type 2 diabetes mellitus without complications; G20.A1 Parkinson's disease without dyskinesia, without mention of fluctuations
CPT/HCPCS: 36415; 71045; 74176; 80053; 81001; 83605; 83690; 83735; 84145; 85025; 87040; 87637; 96360; 96361; 99284; J7030